=== PATIENT | female | born 1955 | race Caucasian/White ===

== ENCOUNTER → 2016-11-27 | Outpatient (CLI) | payer OTHER ==
[~2016-11-27] MED LIST: ADVAIR 250/501 EA INH; ADVAIR 500/501 E1 INH; ALDACTONE25 M1 PO; AMBIEN5 MG PO; ASMANEX220 MCG INH; ASPI-COR81 M1 PO; ASPIRIN81 M1 PO; Albuterol Sulfat3 M1 IH; BYETTA10 MCG/0.0 SC; CEPHALEXIN500 M1 PO; CIPRO250 MG PO; CIPRO500 MG PO; COREG3.125 MG PO; Carafate1 GM PO; DIGITEK0.125 MG PO; DOXEPIN10 MG PO; DUONEB 3 MG/3 ML3 M1 NEB; EFFEXOR XR150 M1 PO; EFFEXOR-XR150 MG PO; ENALAPRIL MALEAT5 MG PO; ENALAPRIL10 MG PO; ENALAPRIL5 MG PO; GABAPENTIN800 MG PO; HYDROCODONE BIT1 T11 PO; IMDUR ER30 MG PO; IMDUR SA30 MG PO; IMDUR30 MG PO; ISOSORBIDE MONO10 MG PO; ISOSORBIDE30 MG PO; LAMICTAL25 MG PO; LAMOTRIGINE25 M1 PO; LAMOTRIGINE25 MG PO; LANOXIN0.125 MG PO; LANTUS100 U/ML SC; LASIX20 MG PO; LEVAQUIN500 M2 PO; LOMOTIL 0.025 M1 TA1 PO; LOPRESSOR25 MG PO; LOPRESSOR50 MG PO; MAPAP325 MG PO; MELOXICAM15 MG PO; METFORMIN1000 MG PO; METFORMIN500 MG PO; METOPROLOL SUCC25 M2 PO; METOPROLOL SUCC50 M1 PO; MOBIC15 MG PO; MYCELEX TROCHE10 MG MM; Mycostatin Powd15 GM T; NOVOLOG1 UNIT/0.0 SC; NOVOLOG100 U/ML SC; Nizoral 2%15 GM T; PANTOPRAZOLE40 MG PO; PEPCID40 MG PO; PHENERGAN25 M1 PO; PREDNISONE20 M1 PO; PROTONIX40 MG PO; SPIRIVA -- 3018 MCG INH; SPIRIVA18 MCG IH; SYMBICORT1 AE1 INH; TOPROL XL100 MG PO; TOPROL XL25 MG PO; TOPROL XL50 MG PO; TRAD5TAB1 PO; TRADJENTA PO; TRAJENTA PO; TYLENOL325 M1 PO; TYLENOL325 M2 PO; ULTRAM50 MG PO; VIBRAMYCIN100 MG PO; VICO10300 PO; VICTOZA6 MG/ML SC; VITAMIN D-32000 UNI1 PO; VITAMIN D5000 I2 PO; VITAMIN D50000 I1 PO; VITAMIN D50000 I3 PO; ZITHROMAX Z PA250 MG PO; ZITHROMAX250 MG PO; ZOCOR40 MG PO; ZOFRAN ODT4 MG SL; [UNRECOGNIZED DRUG - OTHER] PO
--- NOTE | ~2016-11-27 | WRIGHTHP ---
[place], [place] PATIENT HISTORY AND PHYSICAL EXAM NAME: MARISA MANTILLA [facility] #: [id number] UNIT #: [id number] ROOM: DOCTOR: DAWIT LyonsMARIZA BIRTHDATE: [birth year] DOS: 11/27/2016 CHIEF COMPLAINT: Diabetic foot ulcers. HISTORY OF PRESENT ILLNESS: This is a 61-year-old female with a history of poorly controlled diabetes and neuropathy who comes in with multiple ulcerations of both of her feet located at the toes. She has been seen in the Wound Clinic before and had healed from diabetic foot ulcers. However, they have reoccurred. She has had some open areas for approximately 3-4 months now. She said it does not really drain. She said they started out as blisters and that occasionally she will get a sharp pain, which she attributes to neuropathy. No fevers or chills are noted. She is not putting any type of cream on it at the present time. She is keeping it covered with a dry dressing, however. She does not have diabetic shoes. She was encouraged to obtain these; however, she inquired to several different areas of different places for diabetic shoes, but none of them could be covered for her. According to the patient, she does not have diabetic shoes. She comes in today wearing a flat cloth like shoe which does not seem to have a very big toe box. PAST MEDICAL HISTORY: Significant for multiple medical problems which include COPD, history of atrial fibrillation, hypertension, type 2 diabetes, renal insufficiency, history of sepsis, congestive heart failure. She apparently wears oxygen at night. Her EF is 25%, obesity, protein calorie malnutrition, chronic respiratory failure, hypercoagulable state. She does have hyperlipidemia. She is on insulin. Her sugars are not well controlled. They are in the high 100s to mid 200s range. PAST SURGICAL HISTORY: She is status post x 2, tubal ligation, cholecystectomy, left foot surgery. FAMILY HISTORY: Diabetes and heart disease in her father. SOCIAL HISTORY: She is a former smoker, quit 14 years ago. She is , does not drink alcohol or use any drugs. ALLERGIES: IVP DYE. CURRENT MEDICATIONS: As follows: Aspirin 81 daily, Spiriva inhalation twice a day, gabapentin 800 t.i.d., Victoza daily, Tradjenta 5 mg daily, Zocor 40 daily, albuterol, ipratropium inhalation, nebulizers t.i.d., Advair Diskus b.i.d., metoprolol 100 daily, vitamin D3 2000 units daily, digoxin 125 mcg daily, Asmanex HFA 200 mcg daily, Pepcid 40 daily, Lantus 10 units in the morning and 60 units in the evening, NovoLog 20 units b.i.d., Lasix 20 daily, Ambien 5 mg at bedtime, Effexor XR 150 daily, doxepin 10 mg at bedtime, Imdur 10 mg daily. REVIEW OF SYSTEMS: She has chronic shortness of breath. She has no fevers or chills. She does have some difficulty ambulating with gait instability. She states that last night she had some nausea and diarrhea, but this seems to have improved this morning. [place], [place] PATIENT HISTORY AND PHYSICAL EXAM NAME: MARISA MANTILLA UNIT #: [id number] ROOM: DOCTOR: MARIZA PASTOR M.D. BIRTHDATE: [birth year] PHYSICAL EXAMINATION: VITAL SIGNS: She is afebrile, pulse of 88, respirations 18, blood pressure is 98/60. GENERAL: This is an elderly female who appears older than her stated age, is obese, in no acute distress. NECK: There is no JVD. LUNGS: Clear to auscultation anteriorly. CARDIOVASCULAR: S1, S2 regular rate and rhythm. ABDOMEN: Morbidly obese, soft and not tender at the current time. EXTREMITIES: She has no edema. Her pulses are palpable. Her feet are warm. Her DARCIE was 0.84 on the left and 0.9 on the right. She has several different open areas on both of her feet at the toes with a lot of exfoliation in open areas where there has been bleeding and trauma and denuded skin. The 2 major areas that were measured are measureable, there is one small ulcer located in between the third toe on the left side and the fourth digit. It is right in between those areas measuring 0.9 x 0.6 x 0.1. There is really very minimal amount of callus. There is really no visible necrotic tissue present. It is very superficial. The other area is on the right great toe and is measuring 0.5 x 0.5 x 0.1. There is no warmth, purulence or tenderness to any of these areas. The rest of the toes too, there are several areas where it is just excoriated skin and denuded areas from friction on the dorsal aspect of the toes. Her toes are somewhat curled and the areas that are affected are right at the tip of the toe on both of her feet actually. The left third toe is minimally edematous. It is not acutely warm and not acutely tender. There is no purulence noted. ASSESSMENT AND PLAN: Diabetic foot ulcers, mostly these are superficial in nature and I believe if we could get her better footwear, this could be avoided. In the meantime, for her excoriated areas, I would like her to try some Silvadene and try to keep some gauze, 2 x 2 in between the areas where her third and fourth digits are rubbing and see if that would help and then use a bulky ABD pad. We will give her postop shoe today, I think she will have difficulty walking with 2 postop shoes, but we will give her at least one for the right foot. I think this is the one of greater concern since the great toe is affected at this point, so we will give her postoperative shoe for the right foot. We will see if we can order PolyMem for her, I think this would really help that ulceration of her left third toe. I have written for a pair of diabetic shoes for her. Hopefully, her insurance will cover this. Followup is in 1 week. The patient was told to call if there is any problem. [place], [place] PATIENT HISTORY AND PHYSICAL EXAM [id number] UNIT #: [id number] ROOM: DOCTOR: MARIZA PASTOR M.D. BIRTHDATE: [birth year] MARIZA PASTOR MD CM:HISPHYS:PATIENT HISTORY AND PHYSICAL EXAMINATION [id number] MARIZA PASTOR M.D. 11/28/16 0932 interface
== END ==
LOC: WOUNDCARE 03:49
DX: E11.621 Type 2 diabetes mellitus with foot ulcer (principal); L97.511 Non-pressure chronic ulcer of other part of right foot limited to breakdown of skin; L97.521 Non-pressure chronic ulcer of other part of left foot limited to breakdown of skin; E11.40 Type 2 diabetes mellitus with diabetic neuropathy, unspecified; J44.9 Chronic obstructive pulmonary disease, unspecified; I48.91 Unspecified atrial fibrillation; I11.0 Hypertensive heart disease with heart failure; I50.9 Heart failure, unspecified; A41.9 Sepsis, unspecified organism; E78.5 Hyperlipidemia, unspecified; R06.02 Shortness of breath; L84 Corns and callosities; E66.01 Morbid (severe) obesity due to excess calories; N28.9 Disorder of kidney and ureter, unspecified; Z79.4 Long term (current) use of insulin; Z90.49 Acquired absence of other specified parts of digestive tract; Z87.891 Personal history of nicotine dependence

== ENCOUNTER → 2017-05-15 | Outpatient (CLI) | payer OTHER ==
[~2017-05-15] MED LIST changes: +LANTUS100 U/ML SQ
== END ==
LOC: MAMMO 04-25 14:30
DX: Z12.31 Encounter for screening mammogram for malignant neoplasm of breast (principal); E13.9 Other specified diabetes mellitus without complications

== ENCOUNTER → 2017-05-16 | Day surgery (SDC) | payer OTHER ==
[~2017-05-16] VITALS: Ht 172.7 cm; Wt 99.8 kg
[2017-05-16 08:01] VITALS: BP 173/84
[2017-05-16 09:25] VITALS: BP 126/67
[2017-05-16 09:40] VITALS: BP 138/70
[2017-05-16 09:55] VITALS: BP 116/66
== END | disposition home or self-care (01) ==
LOC: SDC 05-05 08:00
DX: Z09 Encounter for follow-up examination after completed treatment for conditions other than malignant neoplasm (principal); K63.5 Polyp of colon; K29.70 Gastritis, unspecified, without bleeding; K20.9 Esophagitis, unspecified; R13.10 Dysphagia, unspecified; K57.30 Diverticulosis of large intestine without perforation or abscess without bleeding; I11.0 Hypertensive heart disease with heart failure; I50.9 Heart failure, unspecified; J44.9 Chronic obstructive pulmonary disease, unspecified; Z86.14 Personal history of Methicillin resistant Staphylococcus aureus infection; Z98.51 Tubal ligation status; Z90.49 Acquired absence of other specified parts of digestive tract; Z98.890 Other specified postprocedural states; Z83.3 Family history of diabetes mellitus; Z87.891 Personal history of nicotine dependence; Z79.4 Long term (current) use of insulin; Z86.010 Personal history of colon polyps; Z79.899 Other long term (current) drug therapy; Z79.82 Long term (current) use of aspirin; F32.9 Major depressive disorder, single episode, unspecified; E11.621 Type 2 diabetes mellitus with foot ulcer

== ENCOUNTER → 2017-06-10 | Outpatient (CLI) | payer OTHER ==
--- NOTE | ~2017-06-10 | CON ---
[place], [place] REPORT OF CONSULTATION [id number] UNIT #: [id number] ROOM: DOCTOR: DAWIT LyonsMARIZA BIRTHDATE: [birth year] DOS: 06/10/2017 HISTORY OF PRESENT ILLNESS: This patient has been seen in the Wound Care Department before, but has not been seen for several months now. The last time she was here was back in January for multiple diabetic foot ulcers that were relatively superficial and the wound had been improving; however, she has been lost to follow up. She comes in today stating that she has been quite busy at home. Her has been ill and has had multiple cardiac issues and says she has been quite busy with him and has not really been able to focus on her medical problems. She did insist however that she get her feet reevaluated and that is why she is here. She states her wounds kind of get better and then reopen very easily and says she has had fairly open wounds now for the past 3 or 4 weeks now. They do drain occasionally bloody drainage. She has not been really putting anything on it. She is just wearing her socks, does have Band-Aids that she will put on the wounds, but does not have any other types of dressing supplies. She is using postop shoes for both of her feet presently. Initially, the wounds start out as blisters. They break open and then create a wound that takes a long time to heal. When I asked specifically about her sugar control, she says someone took her glucometer or she thinks she lost it and went to the hospital and she has not been checking her sugars for quite some time now, but we do note that her sugar has been markedly uncontrolled in the past. The wounds are not really creating any pain or discomfort at the present time. SOCIAL HISTORY: She currently is a nonsmoker. PHYSICAL EXAMINATION: VITAL SIGNS: Temperature is 99.1, pulse is 98, respirations 18, blood pressure is 110/60. EXTREMITIES: The wounds are located on both of her feet. She has multiple open areas that are fairly superficial and abrasion type of injuries, but the biggest ones are located on the right great toe measuring 0.5 x 0.6 x 0.1, that is wound #10. Wound #11 is in the right posterior part of the toe and is 1 x 0.5 x 0.2. There is a lot of excoriation and old dried blood around the area, a little bit calluses on the right great toe. Wound #12 is also on the right great toe midline, is 0.5 x 0.8 x 0.1. Wound #13 is on the right fifth toe. This is also measuring 0.6 x 2.4 x 0.1. This is to me the worst one. At this point, the toe is erythematous, but not acutely tender. There is some minimal fibrin slough present and it is actually in between the web space of the fourth and fifth toe. There is no purulence. The left great toe has an open area as well as 0.4 x 0.4 x 0.1 that looks relatively superficial and then there is another one on the left great toe that is 0.4 x 0.4 x 0.1. Wound #15 is on the second left toe, 0.4 x 0.4 x 0.1. Selective debridement was done of the wound on the fifth toe as well as on the right great toe. The tissue removed was just a devitalized tissue with some hyperkeratosis and callus as well as some fibrin and slough. The patient tolerated the debridement well. The tissue was just a devitalized tissue. A scalpel was utilized as well as a curette. There was minimal bleeding that was controlled with pressure. Post debridement measurements are unchanged. The patient tolerated the debridement well. ASSESSMENT AND PLAN: Chronic recurrent diabetic foot ulcers. Really she does not have good offloading shoes or protected footwear, and for that matter she [place], [place] REPORT OF CONSULTATION NAME: MARISA MANTILLA UNIT #: [id number] ROOM: DOCTOR: AI PASTOR M.D.ENA BIRTHDATE: [birth year] has an open toe postop shoe that she is using which I think is still not helping to prevent some of these wounds. She also had a blistered area on the right lateral foot that was intact, it is blood filled, it is not tender, there was no sign of infection, which I think is from the strap of the postop shoe. For now I would like to use the TheraHoney sheets just to try to keep the wound clean. They are relatively superficial. They do not appear to be acutely infected. There may be mild cellulitis with the fifth toe. At this time, we will go ahead and put her on an empiric doxycycline 100 twice a day for 10 days for now and I have taken the liberty to order an x-ray. The patient is agreeable to that. She did have arterial Dopplers done in the recent couple of months ago back in January, which were good. She had good ABIs and relatively normal waveforms at that time. We will also schedule the legal referee to come when she is here next week to hopefully try to obtain for her some type of offloading device that will accommodate her toes as well and give her enough room for her toes. We will use a dressing today that hopefully will stay in place for at least 3 days, unless there is strike-through and she is to change it before then. So I have ordered an x-ray. I have also ordered her lab work. She has not had her hemoglobin A1c checked for. ADDENDUM I wanted to mention that I did go ahead and order an x-ray of the right foot, mostly to evaluate the fifth toe area and also I had taken the liberty to order some blood work for her as she has not been checking her sugars, so we really have no idea what her control is, although I do know in the past, it has not been good. So, I would like to go ahead and get that checked as well. She is running a low grade temperature, although I would think it would be unlikely secondary to the wounds, they do not appear to be acutely infected. There may be some mild cellulitis on the fifth toe, but I did explain to her to keep an eye out for this and if she does spike a fever or have any changes, she should go to the ER. Ideally, a contact cast would probably be a good option for her to help really heal these ulcerations. However, her balance may not be stable enough for a contact cast, so we will not order this for her at this time. Followup is in one week. MARIZA PASTOR MD CM:CONSTR:REPORT OF CONSULTATION 1339 06/11/17 0808 interface
== END | disposition home or self-care (01) ==
LOC: WOUNDCARE 03:26
DX: E11.621 Type 2 diabetes mellitus with foot ulcer (principal); L97.521 Non-pressure chronic ulcer of other part of left foot limited to breakdown of skin; L97.511 Non-pressure chronic ulcer of other part of right foot limited to breakdown of skin

== ENCOUNTER → 2017-06-12 | Outpatient (CLI) | payer OTHER ==
[~2017-06-12] MED LIST changes: +CARVEDILOL6.25 MG PO; +NOVOLOG100 UNIT/1 SC; +VICTOZA 2-0.6 MG/0.1 SC; -VICTOZA6 MG/ML SC
[2017-06-12 10:06] LABS: BASO # 0.1 10*3/uL (0.0-0.1); EOS # 0.6 10*3/uL (0.0-0.4); EOS % 6.3 % (1.0-4.0); HEMATOCRIT 37.9 % (37.0-47.0); HEMOGLOBIN 12.1 g/dl (12.0-16.0); LYMPH # 3.2 10*3/uL (1.3-4.4); LYMPH % 35.6 % (27.0-41.0); MEAN CELL VOLUME 96.9 fl (81.0-99.0); MEAN CORPUSCULAR HGB 30.9 pg (27.0-31.0); MEAN CORPUSCULAR HGB CONC 31.9 g/dl (33.0-37.0); MONO # 0.6 10*3/uL (0.1-1.0); MONO % 6.4 % (3.0-9.0); NEUT # 4.5 10*3/uL (2.3-7.9); NEUT % 50.3 % (47.0-73.0); PLATELET COUNT AUTOMATED 271 10*3/uL (130-400); RED BLOOD COUNT 3.91 10*6/uL (4.10-5.10); RED CELL DISTRI WIDTH 12.9 % (0-14.5)
[2017-06-12 10:30] LABS: HEMOGLOBIN A1c 10.7 % (4.8-5.6)
[2017-06-12 10:32] LABS: ALBUMIN 3.2 gm/dl (3.1-4.5); BILIRUBIN, TOTAL 0.3 mg/dl (0.2-1.0); POTASSIUM 4.9 mmol/L (3.5-5.1); TOTAL PROTEIN 8.6 gm/dL (6.4-8.2)
== END | disposition home or self-care (01) ==
LOC: LAB 09:37
DX: E11.621 Type 2 diabetes mellitus with foot ulcer (principal); L97.519 Non-pressure chronic ulcer of other part of right foot with unspecified severity; L97.529 Non-pressure chronic ulcer of other part of left foot with unspecified severity

== ENCOUNTER 2017-06-14 18:13 | Inpatient (IN) | payer OTHER ==
[~2017-06-14] VITALS: Ht 172.7 cm; Wt 101.6 kg
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
--- NOTE | ~2017-06-14 | CON ---
[place], [place] REPORT OF CONSULTATION NAME: MARISA MANTILLA [facility] #: [id number] UNIT #: [id number] ROOM: 507 DOCTOR: DAWIT LyonsMARIZA BIRTHDATE: [birth year] DOS: 06/16/2017 WOUND CARE CONSULTATION. HISTORY OF PRESENT ILLNESS: This is a patient known to the wound clinic for a history of recurrent diabetic foot ulcers. She has had multiple ulcers of her feet, mostly the toe areas that are multiple and chronic and recurrent. These wounds had been healing in the past when she had been coming to the wound clinic consistently, but has not been to the wound clinic for several months now. She did come back to us back a week ago for the first time, back last Friday and when I had asked her about her glucose control, she said she did not know because she had run out of test strips and did not have a meter, so she had not been checking her sugar. I did go ahead and did some blood work and her sugar was noted to be over 400 on the routine blood work. I did advise the patient to either go to the hospital or call for ER evaluation or to seek the advice of her primary care. In any case, it does appear that she was brought into the Emergency Room several days later for confusion. She was brought in by her daughter. The patient had reported feeling weak and tired. There were reports of a fever of 101 that resolved with ibuprofen. She had noted some urinary symptoms, frequent with a malodor and she was admitted for urinary tract infection and metabolic encephalopathy, acute kidney failure and wound care has been consulted for her diabetic foot ulcers. When I had seen her last week, we did recommend TheraHoney for the wounds, but when I was called for the consult, nursing staff stated that the patient did not have any dressings on her feet and when she came up to the floor, her socks were sticking to her wounds. PAST MEDICAL HISTORY: Significant for history of chronic adrenal neoplasm, benign atrial fibrillation, chronic respiratory failure, chronic kidney disease stage 2, COPD, dyslipidemia, hypertension, generalized anxiety disorder, diabetes mellitus, irritable bowel syndrome, lumbar radiculopathy, macrocytic anemia, obesity, oxygen dependent, peripheral neuropathy, protein calorie malnutrition, systolic congestive heart failure. She is status post , cholecystectomy. She is status post left foot surgery. SOCIAL HISTORY: She is a former smoker, currently does not smoke. Denies drug use. Denies alcohol consumption. FAMILY HISTORY: Significant for liver failure in the mother and myocardial infarction in the father. ALLERGIES: IVP DYE. CURRENT MEDICATIONS: She has ordered are Lanoxin 125 mcg p.o. daily, Effexor 75 p.o. daily, Victoza subQ daily, Tradjenta 5 mg p.o. daily, aspirin 81 p.o. daily, simvastatin 40 at bedtime, Dulera q. 12 hours inhalation, Levemir b.i.d. subQ, Neurontin 800 p.o. b.i.d., Vasotec 5 p.o. b.i.d., doxepin 10 mg p.o. at bedtime, Coreg 6.25 p.o. b.i.d., ipratropium nebulizers q. 6 hours, Lovenox 40 subQ daily, insulin sliding scale, Rocephin 1 gram IV daily, Restoril 15 mg p.o. at bedtime p.r.n., Zofran 4 mg IV q. 6h. p.r.n., Morphine 2 mg IV q.4h. p.r.n., milk of mag, Dulcolax and Duck p.r.n. and Tylenol p.r.n. [place], [place] REPORT OF CONSULTATION NAME: MARISA MANTILLA UNIT #: [id number] ROOM: 507 DOCTOR: MARIZA PASTOR M.D. BIRTHDATE: [birth year] REVIEW OF SYSTEMS: She does not have any pain with her foot wounds. She denies currently any fever or chills. Apparently, she did report a fever at home. No breathing trouble, no chest pain, currently no nausea, vomiting or diarrhea. She did tell me that she has chronic lightheadedness, but says that this is feeling better. PHYSICAL EXAMINATION: VITAL SIGNS: Temperature is 98.9, pulse of 88, respirations 20, blood pressure is 123/62. GENERAL: This is an elderly female who appears much older than her stated age, is in no acute distress and pleasant and cooperative to examination. HEENT: Oropharynx is clear. Mucous membranes are moist. Extraocular movements are intact. NECK: Supple. There is no JVD. LUNGS: Clear. CARDIOVASCULAR: S1, S2 regular rate and rhythm. Systolic murmur appreciable. ABDOMEN: Morbidly obese, soft and nontender. EXTREMITIES: She has really no calf tenderness. Peripheral pulses are palpable. She has multiple excoriations and abrasions of all her toes. The wounds on the left foot appear to be stable or not and they are dry and starting to look like they are healing. The right great toe wound still has a lot of callus. There is a lot of excoriation and areas of repetitive trauma that are causing dried blood around the periwound noted. The open area is really not that big, I would say 0.6 x 0.5 x 0.1. It does not appear to be infected. There was an actual open area last week on the medial aspect of the toe that does appear to be healed at this point. The area between the fourth and fifth toes on the web right foot looks much better than last week. Her entire toe was red and that has definitely gone down quite a bit. She was given a script for an antibiotic for possible cellulitis of the fifth toe, so that definitely looks better than when I saw it and the open area also looks to be healing quite nicely. Due to the fact that there was quite a bit of callus and some devitalized tissue around the right great toe ulcer, a debridement was done. This was a selective debridement. The tissue removed was just hyperkeratosis. Cetacaine spray was used for topical anesthesia and a #15 blade was utilized. The patient tolerated the debridement well. Post-debridement measurements are unchanged. LABORATORY DATA: Today show white count of 6.5, hemoglobin of 9.8, platelets of 188. BUN is 11, creatinine 0.8, glucose is 115. Her hemoglobin A1c is uncontrolled at 10.5. Her triglycerides are high at 300. Urine culture is pending. The patient had a head CT done, which was no acute intracranial process. She also had an x-ray done of her foot, which I had ordered and that did show some soft tissue swelling, but no other bony abnormalities. ASSESSMENT AND PLAN: Multiple diabetic foot ulcerations that are relatively superficial. At this point, I do see an improvement from last week to this week. I would continue with Jayleen for now. She also had some areas that is a blistered area on the right lateral foot that I felt was from the straps of her shoes. It was intact that was left alone, so I would try to leave this [place], [place] REPORT OF CONSULTATION NAME: MARISA MANTILLA UNIT #: [id number] ROOM: 50 DOCTOR: MARIZA PASTOR M.D. BIRTHDATE: [birth year] alone and keep it dry as much as possible. We can pad it with a 4 x 4 border gauze for now. She also had an area on the medial part of the foot as well that looks to be healing. At this point, I think she really needs to have a better diabetic shoes. We had recommended to her in the past. She has not followed up in the wound clinic for several months now. We do have an appointment for her coming up in the wound clinic to meet with the choir member to see if there is any kind of offloading boots and/or shoes that we can order for the patient. She has multiple medical problems that are being managed by her medical team. She does have also depression and plans are for the patient to be admitted to [facility] once medically stable. The patient did have previous arterial studies done, which were good. MARIZA PASTOR MD CM:CONSTR:REPORT OF CONSULTATION 1506 06/20/17 1017 interface
[~2017-06-14 18:13] MED LIST changes: -CARVEDILOL6.25 MG PO; -NOVOLOG100 UNIT/1 SC
[2017-06-14 18:23] VITALS: BP 117/47
[2017-06-14 18:50] LABS: ALBUMIN 2.9 gm/dl (3.1-4.5); ALKALINE PHOSPHATASE 113 U/L (45-117); BILIRUBIN, TOTAL 0.2 mg/dl (0.2-1.0); BUN 23 mg/dl (7-24); CARBON DIOXIDE 27 mmol/L (21-32); CHLORIDE 102 mmol/L (98-107); EST GLOM FILT AFRICAN AMERICAN 45 ml/min; GLUCOSE 319 mg/dL (65-99); POTASSIUM 4.7 mmol/L (3.5-5.1); SGOT/AST 72 IU/L (3-35); SGPT/ALT 36 U/L (12-78); SODIUM 135 mmol/L (136-145); TOTAL PROTEIN 7.6 gm/dL (6.4-8.2)
[2017-06-14 18:53] LABS: TROPONIN I < 0.015 ng/ml (<0.045)
[2017-06-14 18:56] VITALS: BP 97/47
[2017-06-14 18:57] LABS: BASO # 0.1 10*3/uL (0.0-0.1); BASO % 0.9 % (0.0-1.0); EOS # 0.5 10*3/uL (0.0-0.4); EOS % 5.2 % (1.0-4.0); HEMATOCRIT 33.9 % (37.0-47.0); HEMOGLOBIN 10.8 g/dl (12.0-16.0); LYMPH # 3.4 10*3/uL (1.3-4.4); LYMPH % 35.7 % (27.0-41.0); MEAN CELL VOLUME 96.9 fl (81.0-99.0); MEAN CORPUSCULAR HGB 30.9 pg (27.0-31.0); MEAN CORPUSCULAR HGB CONC 31.9 g/dl (33.0-37.0); MEAN PLATELET VOLUME 10.2 fl (9.6-12.3); MONO # 0.7 10*3/uL (0.1-1.0); MONO % 7.2 % (3.0-9.0); NEUT # 4.8 10*3/uL (2.3-7.9); NEUT % 50.7 % (47.0-73.0); PLATELET COUNT AUTOMATED 243 10*3/uL (130-400); RED CELL DISTRI WIDTH 13.2 % (0-14.5); WHITE BLOOD COUNT 9.4 10*3/uL (4.8-10.8)
[2017-06-14 19:37] LABS: BILIRUBIN NEGATIVE (NEGATIVE); BLOOD TRACE-INTACT (NEGATIVE); CLARITY CLOUDY (CLEAR); COLOR YELLOW (YELLOW); GLUCOSE 3+ (NEGATIVE); KETONE TRACE (NEGATIVE); LEUKO ESTERASE 2+ (NEGATIVE); NITRITE NEGATIVE (NEGATIVE); PH 5.5 (5.0-9.0); PROTEIN NEGATIVE (NEGATIVE); UROBILINOGEN 0.2 E.U./dl (0.2-1.0)
[2017-06-14 19:48] LABS: BACTERIA 1+; EPITHELIAL CELLS TNTC; URINE REFLEX COMMENT YES (NO); WBC TNTC wbc/hpf (0-5); YEAST 2+
[2017-06-14 19:56] LABS: URINE AMPHETAMINES < 1000 (1000ng/ml); URINE BARBITURATES < 200 (200ng/ml); URINE COCAINE < 300 (300ng/ml)
[2017-06-14 22:07] VITALS: BP 110/43
[2017-06-15 05:47] LABS: HEMOGLOBIN A1c 10.5 % (4.8-5.6)
[2017-06-15 05:58] LABS: BUN 18 mg/dl (7-24); CARBON DIOXIDE 30 mmol/L (21-32); CHLORIDE 107 mmol/L (98-107); CHOLESTEROL 191 mg/dL (<200); EST GLOM FILT AFRICAN AMERICAN > 60 ml/min; FREE T4 0.84 ng/dl (0.76-1.46); GLUCOSE 150 mg/dL (65-99); HDL CHOLESTEROL 37 mg/dl (40-60); LDL CHOLESTEROL 94 mg/dL (9-159); POTASSIUM 4.4 mmol/L (3.5-5.1); SODIUM 142 mmol/L (136-145); TRIGLYCERIDES 301 mg/dl (<150); VLDL CHOLESTEROL 60 mg/dL (6-40)
[2017-06-15 06:07] LABS: BASO # 0.1 10*3/uL (0.0-0.1); BASO % 0.8 % (0.0-1.0); EOS # 0.5 10*3/uL (0.0-0.4); EOS % 6.8 % (1.0-4.0); HEMATOCRIT 32.2 % (37.0-47.0); HEMOGLOBIN 10.1 g/dl (12.0-16.0); LYMPH # 3.4 10*3/uL (1.3-4.4); MEAN CELL VOLUME 98.5 fl (81.0-99.0); MEAN CORPUSCULAR HGB 30.9 pg (27.0-31.0); MEAN CORPUSCULAR HGB CONC 31.4 g/dl (33.0-37.0); MEAN PLATELET VOLUME 10.3 fl (9.6-12.3); MONO # 0.6 10*3/uL (0.1-1.0); NEUT # 3.3 10*3/uL (2.3-7.9); NEUT % 41.1 % (47.0-73.0); PLATELET COUNT AUTOMATED 221 10*3/uL (130-400); RED BLOOD COUNT 3.27 10*6/uL (4.10-5.10); RED CELL DISTRI WIDTH 13.2 % (0-14.5)
[2017-06-15 07:05] LABS: PROTHROMBIN TIME 10.6 SECONDS (9.0-12.4)
[2017-06-15 07:52] VITALS: BP 150/79
[2017-06-15 12:00] VITALS: BP 155/78
[2017-06-15 12:00] LABS: BILIRUBIN NEGATIVE (NEGATIVE); BLOOD NEGATIVE (NEGATIVE); CLARITY SL CLOUDY (CLEAR); COLOR YELLOW (YELLOW); GLUCOSE NEGATIVE (NEGATIVE); KETONE NEGATIVE (NEGATIVE); LEUKO ESTERASE TRACE (NEGATIVE); NITRITE NEGATIVE (NEGATIVE); PROTEIN NEGATIVE (NEGATIVE); SPECIFIC GRAVITY <= 1.005 (1.005-1.030); UROBILINOGEN 0.2 E.U./dl (0.2-1.0)
[2017-06-15 12:10] LABS: BACTERIA TRACE; EPITHELIAL CELLS 0-2; URINE REFLEX COMMENT YES (NO)
[2017-06-15] MEDS ORDERED: NOVOLOG100 UNIT/1 SC (15:27)
[2017-06-15] MEDS ORDERED: ENALAPRIL5 MG PO (15:28)
[2017-06-15] MEDS ORDERED: CARVEDILOL6.25 MG PO (15:28)
[2017-06-15 16:00] VITALS: BP 131/64
[2017-06-15 20:00] VITALS: BP 136/70
[2017-06-16] VITALS: BP 115/62
[2017-06-16 06:50] LABS: BASO # 0.1 10*3/uL (0.0-0.1); BASO % 0.9 % (0.0-1.0); EOS # 0.5 10*3/uL (0.0-0.4); HEMOGLOBIN 9.8 g/dl (12.0-16.0); LYMPH % 45.7 % (27.0-41.0); MEAN CELL VOLUME 98.8 fl (81.0-99.0); MEAN CORPUSCULAR HGB 30.2 pg (27.0-31.0); MEAN CORPUSCULAR HGB CONC 30.6 g/dl (33.0-37.0); MONO # 0.5 10*3/uL (0.1-1.0); NEUT # 2.4 10*3/uL (2.3-7.9); NEUT % 37.1 % (47.0-73.0); PLATELET COUNT AUTOMATED 188 10*3/uL (130-400); RED BLOOD COUNT 3.24 10*6/uL (4.10-5.10); RED CELL DISTRI WIDTH 13.1 % (0-14.5); WHITE BLOOD COUNT 6.5 10*3/uL (4.8-10.8)
[2017-06-16 06:58] LABS: BUN 11 mg/dl (7-24); CARBON DIOXIDE 31 mmol/L (21-32); CHLORIDE 106 mmol/L (98-107); EST GLOM FILT AFRICAN AMERICAN > 60 ml/min; GLUCOSE 115 mg/dL (65-99); SODIUM 141 mmol/L (136-145)
[2017-06-16 08:00] VITALS: BP 125/57; BP 148/46
[2017-06-16 12:00] VITALS: BP 123/62
[2017-06-16 16:00] VITALS: BP 111/53
[2017-06-16 20:00] VITALS: BP 129/59
[2017-06-17] VITALS: BP 124/67
[2017-06-17 08:00] VITALS: BP 99/55
[2017-06-17 12:15] VITALS: BP 111/50
[2017-06-17 14:14] LABS: VITAMIN D, 25-HYDROXY 39.2 ng/mL (30-100)
[2017-06-17 14:15] LABS: FOLIC ACID 10.04 ng/mL (>5.38)
[2017-06-17 16:00] VITALS: BP 104/56
== END 2017-06-17 17:15 | disposition home or self-care (01) | DRG 40 ==
LOC: ED 18:13 → EDHOLD 21:24 → 5E 21:24
PROVIDERS: Internal Medicine; Nurse Practitioner Family; Student in an Organized Health Care Education/Training Program
PROC: 0YB Anatomical Regions, Lower Extremities, Excision (ICD-10-PCS; principal; 2017-06-16)
PROC: 0HBMXZZ Excision of Right Foot Skin, External Approach (ICD-10-PCS; 2017-06-16)
DX: G93.41 Metabolic encephalopathy (principal); N17.0 Acute kidney failure with tubular necrosis; J96.10 Chronic respiratory failure, unspecified whether with hypoxia or hypercapnia; I13.0 Hypertensive heart and chronic kidney disease with heart failure and stage 1 through stage 4 chronic kidney disease, or unspecified chronic kidney disease; E44.0 Moderate protein-calorie malnutrition; I95.9 Hypotension, unspecified; I50.22 Chronic systolic (congestive) heart failure; F11.20 Opioid dependence, uncomplicated; E11.22 Type 2 diabetes mellitus with diabetic chronic kidney disease; E11.42 Type 2 diabetes mellitus with diabetic polyneuropathy; N39.0 Urinary tract infection, site not specified; I48.91 Unspecified atrial fibrillation; E11.65 Type 2 diabetes mellitus with hyperglycemia; K59.00 Constipation, unspecified; E11.621 Type 2 diabetes mellitus with foot ulcer; J44.9 Chronic obstructive pulmonary disease, unspecified; N18.2 Chronic kidney disease, stage 2 (mild); E78.5 Hyperlipidemia, unspecified; F41.1 Generalized anxiety disorder; K58.9 Irritable bowel syndrome, unspecified; E66.9 Obesity, unspecified; M54.16 Radiculopathy, lumbar region; Z91.041 Radiographic dye allergy status; Z90.49 Acquired absence of other specified parts of digestive tract; Z99.81 Dependence on supplemental oxygen; Z87.891 Personal history of nicotine dependence; Z98.51 Tubal ligation status; Z68.33 Body mass index [BMI] 33.0-33.9, adult; Z82.49 Family history of ischemic heart disease and other diseases of the circulatory system; Z79.4 Long term (current) use of insulin; Z84.89 Family history of other specified conditions; Z83.3 Family history of diabetes mellitus

== ENCOUNTER → 2017-06-19 | Outpatient (CLI) | payer OTHER ==
[~2017-06-19] MED LIST changes: +CARVEDILOL6.25 MG PO; +NOVOLOG100 UNIT/1 SC
--- NOTE | ~2017-06-19 | PR ---
[place], [place] PROGRESS NOTE NAME: MARISA MANTILLA [facility] #: [id number] UNIT #: [id number] ROOM: DOCTOR: DAWIT LyonsMARIZA BIRTHDATE: [birth year] DOS: 06/19/2017 CHIEF COMPLAINT: Followup of multiple diabetic foot ulcers. HISTORY OF PRESENT ILLNESS: This is a 62-year-old female with poorly-controlled diabetes and multiple medical problems who was seen for the first time in the Wound Clinic last week; however, she has been a patient in the past, but has been lost to follow up as well. She comes in as a followup today. Last week, we had blood drawn and her glucose was over 400. She eventually went to the Emergency Room and was diagnosed with a urinary tract infection and was admitted to the hospital where I did see her in consultation and it did appear that the wound seems stable and improving. She has been using TheraHoney sheet. She comes in today without any specific complaints. She says she did notice a new blistered area on her dorsum of the right foot, but otherwise everything else is definitely getting smaller and improving with TheraHoney. She says her sugars are getting better. OBJECTIVE: VITAL SIGNS: Stable. Temperature is 98.7, pulse of 98, respirations 18, blood pressure is 140/50. EXTREMITIES: The wound on #10, which is on the right great toe is measuring smaller at 5.3 x 0.2 x 0.2 and there is some callus still present. A lot of darkened areas secondary to blood and repetitive trauma is noticed as well that has been present. The wound on the right great toe medial aspect is definitely improved and appears to be healed. Wound #12, which is located on the midline of the right great toe is healed. Wound #13, which is the fifth toe between the webspace looks really good as well as 0.1 x 0.1 x 0.1. There is no necrotic tissue. The #14 is a little bit bigger at the left great toe. It is measuring 0.6 x 1.3 x 0.1. This looks more like an abrasion. It is clean and there is really no necrotic tissue and then there is a wound on the left second toe, which is healing as well. She also has an intact blister that is nontender on the dorsum of the right foot, which appears stable and not infected with clear serous fluid and relatively small. A selective debridement was done of the right great toe ulcer just to remove the hyperkeratotic callus around the wound. This was accomplished with a #15 blade. There was some bleeding that was controlled with pressure and silver nitrate. Post-debridement measurements are unchanged. The patient tolerated the debridement well. ASSESSMENT AND PLAN: Multiple diabetic foot ulcers, which are relatively superficial and I believe she is dragging her feet when she walks and ambulates and this is creating wounds and several abrasions. We will continue with the current dressing, which is TheraHoney and a bulky dressing and a postop shoe; however, would like to see if we can get orthotics consultation for possible some type of postop shoe or offloading CAM walker, something that will be sturdier and more protective for her. In addition, she definitely should have some new diabetic shoes. Otherwise, we will continue with the present medications. [place], [place] PROGRESS NOTE NAME: MARISA [facility]ANTILLA [facility] [id number] UNIT #: [id number] ROOM: DOCTOR: MARIZA PASTOR M.D. BIRTHDATE: [birth year] MARIZA PASTOR MD CM:PNTRANS [id number] MARIZA PASTOR M.D. 06/19/17 1237 interface
== END | disposition home or self-care (01) ==
LOC: WOUNDCARE 03:08
DX: E11.621 Type 2 diabetes mellitus with foot ulcer (principal); L97.521 Non-pressure chronic ulcer of other part of left foot limited to breakdown of skin; L97.511 Non-pressure chronic ulcer of other part of right foot limited to breakdown of skin

== ENCOUNTER → 2017-06-30 | Outpatient (CLI) | payer OTHER ==
--- NOTE | ~2017-06-30 | PR ---
[place], [place] PROGRESS NOTE NAME: MARISA MANTILLA [facility] #: [id number] UNIT #: [id number] ROOM: DOCTOR: DAWIT LyonsMARIZA BIRTHDATE: [birth year] DOS: 06/30/2017 CHIEF COMPLAINT: Followup of multiple diabetic foot ulcers. HISTORY OF PRESENT ILLNESS: This is a 62-year-old female with poorly controlled diabetes and multiple medical problems who has been coming to the Wound Clinic for 2 weeks now for multiple diabetic foot ulcers that started out as abrasions on the multiple toes due to neuropathy and poor ill-fitting footwear. She comes in today without any specific complaints. She does have some bloody drainage coming from the right great toe ulcer. Glucose remains elevated per patient report, she says it is still pretty high. PHYSICAL EXAMINATION: VITAL SIGNS: Temperature 98.7, pulse 98, respirations 18, blood pressure is 156/60. EXTREMITIES: Essentially all the wounds have healed on the multiple toes. She still has one on the right great toe that is measuring 0.3 x 0.4 x 0.3. There is very thick callus around it. There is no sign of infection. There is undermining all the way around about 0.3 cm. A debridement was done. The tissue removed was devitalized hyperkeratotic callus as well as the undermined area. This was accomplished with a #15 blade and forceps and scissors. There was amenable bleeding that was controlled with pressure. The patient tolerated the debridement well; it was a selective debridement only. Post-debridement measurements are 0.9 x 0.5 x 0.2. ASSESSMENT AND PLAN: Chronic diabetic foot ulcers. Now, we are dealing with the right great toe ulceration that is really associated with very thick and recurrent callus formation. We need to offload this area a little bit better. She was going to see our community chest officer today for evaluation of an offloading device; however, he will actually see her tomorrow instead to further offload the area with a boot. Also, she is going to get diabetic shoes as well. In the meantime, we will use a collagen for now. The wound is clean, so we can go to collagen and a bulky dressing and have her follow up in one week. [place], [place] PROGRESS NOTE NAME: MARISA MANTILLA UNIT #: [id number] ROOM: DOCTOR: MARIZA PASTOR M.D. BIRTHDATE: [birth year] MARIZA PASTOR MD CM:RADHA [id number] MARIZA PASTOR M.D. 07/01/17256 interface
== END | disposition home or self-care (01) ==
LOC: WOUNDCARE 03:47
DX: E11.621 Type 2 diabetes mellitus with foot ulcer (principal); L97.512 Non-pressure chronic ulcer of other part of right foot with fat layer exposed; E11.40 Type 2 diabetes mellitus with diabetic neuropathy, unspecified; L84 Corns and callosities

== ENCOUNTER → 2017-07-18 | Outpatient (CLI) | payer OTHER ==
--- NOTE | ~2017-07-18 | PR ---
[place], [place] PROGRESS NOTE NAME[id number] UNIT #: [id number] ROOM: DOCTOR: AMENA LINDSEY DPM BIRTHDATE: [birth year] DOS: 07/18/2017 SUBJECTIVE: This is an established patient, seen for right great toe plantar surface diabetic ulcer. The patient has been using Puracol to the area as directed, without any new complaints. Upon physical exam, it is noted that the wound has some slough and debris at the base, although it is relatively healthy. She has no complaints on the foot, but she did have a fall when she entered into her bathroom. She states she did not hurt her head, but she did hurt her legs. The wound measures 1.5 cm x 1.2 cm x 0.3 cm. This area is slough covered and has callus and debris, no active infection, purulent discharge or odor noted. The area was debrided through subcutaneous with 15 blade. The patient tolerated procedure well. Minimal bleeding was controlled via pressure. IMPRESSION: Grade 1 diabetic ulceration, stable. PLAN: 1. Evaluate. 2. Debridement was performed. We will continue using the Puracol AG but we will change the frequency from every third day to every day and have the patient reappoint next week. AMENA LINDSEY DPM CM:PNTRANS [id number] AMENA LINDSEY DPM 07/18/17 1319 interface
== END | disposition home or self-care (01) ==
LOC: WOUNDCARE 02:40
DX: E11.621 Type 2 diabetes mellitus with foot ulcer (principal); L97.512 Non-pressure chronic ulcer of other part of right foot with fat layer exposed; L84 Corns and callosities

== ENCOUNTER → 2017-07-25 | Outpatient (CLI) | payer OTHER | END | disposition home or self-care (01) | LOC: WOUNDCARE 02:10 | DX: E11.621 Type 2 diabetes mellitus with foot ulcer (principal); L97.512 Non-pressure chronic ulcer of other part of right foot with fat layer exposed; L97.521 Non-pressure chronic ulcer of other part of left foot limited to breakdown of skin; I10 Essential (primary) hypertension; E78.5 Hyperlipidemia, unspecified; Z87.891 Personal history of nicotine dependence ==

== ENCOUNTER → 2017-07-30 | Outpatient (CLI) | payer OTHER ==
[2017-07-30 10:36] LABS: ALBUMIN 2.9 gm/dl (3.1-4.5); ALKALINE PHOSPHATASE 152 U/L (45-117); BUN 17 mg/dl (7-24); CHLORIDE 96 mmol/L (98-107); CREATININE 1.06 mg/dL (0.55-1.02); SGOT/AST 79 IU/L (3-35); SGPT/ALT 40 U/L (12-78); SODIUM 137 mmol/L (136-145); TOTAL PROTEIN 8.5 gm/dL (6.4-8.2)
[2017-07-31 06:11] LABS: TOTAL PROTEIN, SERUM 7.4 g/dL (6.0-8.5)
[2017-07-31 15:09] LABS: A/G RATIO 0.8 (0.7-1.7); ALBUMIN 3.2 g/dL (2.9-4.4); ALPHA-1-GLOBULIN 0.3 g/dL (0.0-0.4); ALPHA-2-GLOBULIN 0.9 g/dL (0.4-1.0); BETA GLOBULIN 1.3 g/dL (0.7-1.3); GAMMA GLOBULIN 1.7 g/dL (0.4-1.8); GLOBULIN, TOTAL 4.2 g/dL (2.2-3.9); M-SPIKE Not Observed g/dL (Not Observed)
[2017-08-01 18:08] LABS: METHYLMALONIC ACID 706961 520 nmol/L (0-378)
== END | disposition home or self-care (01) ==
LOC: LAB 08:55 → MRI 09:00
PROVIDERS: Psychiatry & Neurology Neurology
DX: R51 Headache (principal); R41.3 Other amnesia; R42 Dizziness and giddiness; R20.9 Unspecified disturbances of skin sensation

== ENCOUNTER → 2017-08-06 | Outpatient (CLI) | payer OTHER | END | disposition home or self-care (01) | LOC: WOUNDCARE 01:09 | DX: E11.621 Type 2 diabetes mellitus with foot ulcer (principal); L97.512 Non-pressure chronic ulcer of other part of right foot with fat layer exposed; I10 Essential (primary) hypertension; E78.5 Hyperlipidemia, unspecified; Z87.891 Personal history of nicotine dependence ==

== ENCOUNTER 2017-08-27 16:34 | Inpatient (IN) | payer OTHER ==
[2017-08-27] VITALS (14 sets, daily range): BP systolic 78–109; BP diastolic 30–62
[~2017-08-27] VITALS: Ht 172.7 cm; Wt 108.5 kg
--- NOTE | ~2017-08-27 | CON ---
[place], [place] REPORT OF CONSULTATION [id number] #: [id number] ROOM: 520 DOCTOR: ROSALINE BORDEN MD BIRTHDATE: [birth year] DOS: 08/28/2017 HISTORY OF PRESENT ILLNESS: This is a 62-year-old -[place] woman with a history of atrial fibrillation, chronic respiratory failure, stage 2 chronic kidney disease, type 2 diabetes mellitus, and COPD. She quit smoking 16 years ago. Has dyslipidemia, essential hypertension, peripheral neuropathy, obesity. She had a diagnostic heart cath done recently and coronary arteries were okay. She was admitted to the hospital because of right-sided chest pain. The pain starts in the upper back of the right side of the spine and moved around to the lateral part of the chest. No anterior chest pain was evident. This feeling has been there for about a week and it came and went. She had it at night and also when she moved her torso. There was no sweating, nausea and breathing was not difficult. She had reported that it was sharp to the physician who did the initial history and physical, but when I asked, she said there was a pressure and heaviness over the upper back. No fever or chills. She denies no cough, but has chronic shortness of breath. No swelling in the lower extremities. HOME MEDICATIONS: Include aspirin, carvedilol, digoxin, doxepin, enalapril, furosemide, gabapentin, ipratropium-albuterol/DuoNeb, Victoza, Tradjenta, Zocor, Spiriva, and Effexor. PHYSICAL EXAMINATION: GENERAL: This is a patient who is alert and oriented, sitting in a chair. She is having her lunch and is not particularly short of breath. Her complexion is a little pale. VITAL SIGNS: Pulse is regular at 18 beats per minute, blood pressure 130/82. NECK: Normal JVP. No bruit in the neck. HEART: There is no cardiomegaly, no murmurs are present. EXTREMITIES: There is no edema in the lower extremities. RESPIRATORY: Breath sounds are mildly diminished with some adventitious sounds. BACK: There is a moderate degree of tenderness over the upper back and states the pain that she tells me was bothering her. IMPRESSION: 1. This patient has chest wall pain. I do not believe there is any underlying coronary artery disease. 2. History of atrial fibrillation. She is in normal sinus rhythm. There are no active cardiac problems at this time. I have no new recommendations. I thank you for this consult. [place], [place] REPORT OF CONSULTATION NAME: MARISA MANTILLA UNIT #: [id number] ROOM: [facility] DOCTOR: ROSALINE BORDEN MD BIRTHDATE: [birth year] ROSALINE BORDEN MD CM:CONSTR:REPORT OF CONSULTATION 1226 08/28/17 0396 interface
--- NOTE | ~2017-08-27 | EKG ---
[place], [place] ELECTROCARDIOGRAM REPORT NAME: MARISA MANTILLA UNIT #: [id number] ROOM: [facility] DOCTOR: ROSALINE BORDEN MD BIRTHDATE: [birth year] DOS: 08/27/2017 TIME: 1641 hours. Normal sinus rhythm at 93 beats per minute. Flattened T waves in lateral chest leads. An abnormal ECG. No previous tracing is available for comparison. ROSALINE BORDEN MD CM:EKGRPT:ELECTROCARDIOGRAM REPORT [id number] 1313 ROSALINE BORDEN MD
--- NOTE | ~2017-08-27 | PR ---
[place], [place] PROGRESS NOTE NAME: MARISA MANTILLA [facility] #: [id number] UNIT #: [id number] ROOM: 520 DOCTOR: LULU LUONG MD BIRTHDATE: [birth year] DOS: 08/29/2017 SUBJECTIVE: A 24-hour events noted. Discussed with the nursing staff. Cardiac status appears to be stable. The patient is seen by Dr. Edwards yesterday. OBJECTIVE: VITAL SIGNS: Blood pressure today is 106/46. NECK: Supple, no JVD. LUNGS: Clear. HEART: Sounds are regular. NEUROLOGIC: Stable. LABORATORY DATA: Hemoglobin 10.6, hematocrit 33.8. Electrolytes are normal. Creatinine is 1.1. Echocardiogram done by Dr. Edwards showed an excellent ejection fraction. IMPRESSION: The patient with chest wall pain, probable noncardiac pain, history of atrial fibrillation, chronic kidney disease, chronic obstructive pulmonary disease, oxygen dependency, and cardiac status is stable. Continue the carvedilol, digoxin, enalapril, Lasix, simvastatin, and we will follow up. LULU LUONG MD CM:PNTRANS [id number] LULU LUONG MD 08/30/17212 interface
[2017-08-27 17:10] LABS: BASO # 0.1 10*3/uL (0.0-0.1); BASO % 0.9 % (0.0-1.0); EOS # 0.5 10*3/uL (0.0-0.4); EOS % 4.4 % (1.0-4.0); HEMATOCRIT 34.3 % (37.0-47.0); HEMOGLOBIN 11.1 g/dl (12.0-16.0); LYMPH # 3.3 10*3/uL (1.3-4.4); MEAN CELL VOLUME 95.5 fl (81.0-99.0); MEAN CORPUSCULAR HGB 30.9 pg (27.0-31.0); MEAN CORPUSCULAR HGB CONC 32.4 g/dl (33.0-37.0); MEAN PLATELET VOLUME 9.8 fl (9.6-12.3); MONO # 0.9 10*3/uL (0.1-1.0); MONO % 7.9 % (3.0-9.0); NEUT # 6.2 10*3/uL (2.3-7.9); NEUT % 56.4 % (47.0-73.0); PLATELET COUNT AUTOMATED 235 10*3/uL (130-400); RED BLOOD COUNT 3.59 10*6/uL (4.10-5.10); WHITE BLOOD COUNT 11.1 10*3/uL (4.8-10.8)
[2017-08-27 17:20] LABS: ACT PARTIAL THROMBO TIME 22.1 SECONDS (20.8-31.5)
[2017-08-27 17:26] LABS: ALBUMIN 2.9 gm/dl (3.1-4.5); ALKALINE PHOSPHATASE 140 U/L (45-117); BUN 22 mg/dl (7-24); CHLORIDE 97 mmol/L (98-107); CREATININE 1.76 mg/dL (0.55-1.02); LIPASE 336 U/L (73-393); MAGNESIUM 1.6 mg/dL (1.5-2.1); POTASSIUM 4.4 mmol/L (3.5-5.1); SGOT/AST 55 IU/L (3-35); SGPT/ALT 39 U/L (12-78); SODIUM 134 mmol/L (136-145); TOTAL PROTEIN 7.6 gm/dL (6.4-8.2)
[2017-08-27 17:28] LABS: TROPONIN I < 0.015 ng/ml (<0.045)
[2017-08-27 18:46] LABS: BILIRUBIN NEGATIVE (NEGATIVE); BLOOD NEGATIVE (NEGATIVE); CLARITY SL CLOUDY (CLEAR); COLOR YELLOW (YELLOW); GLUCOSE 3+ (NEGATIVE); KETONE TRACE (NEGATIVE); LEUKO ESTERASE 1+ (NEGATIVE); NITRITE POSITIVE (NEGATIVE); PH 5.5 (5.0-9.0); UROBILINOGEN 0.2 E.U./dl (0.2-1.0)
[2017-08-27 19:00] LABS: BACTERIA 4+; CALCIUM OXALATE CRYSTALS 1+; EPITHELIAL CELLS 20-25; WBC 41-50 wbc/hpf (0-5); YEAST 1+
--- NOTE | 2017-08-27 19:31 | NUR ---
LA 2.4 DR SMITH NOTIFIED
--- NOTE | 2017-08-27 19:59 | NUR ---
RESIDENT IN ROOM TO TALK TO PATIENT AND GET PATIENT'S HISTORY AND PHYSICAL.
--- NOTE | 2017-08-27 20:30 | NUR ---
A 62 YEAR OLD FEMALE admitted to [facility], under the services of LAUREANO Isbell DO with a diagnosis of UTI,CP,SHOCK,LACTIC ACIDOSIS. Chief complaint is DIZZINESS, RIGHT SIDED CHEST PAIN. Patient arrived via stretcher from ER. Monitor applied. Initial assessment completed. Vital signs taken and recorded. LAUREANO ISBELL DO notified of admission to the unit. Orders received. See assessment for past medical history, medications and allergies. Patient and/or family oriented to unit. [facility] visitation policy reviewed. Clothing/patient valuable form completed. NEAL BOURGEOIS
[2017-08-27] MEDS ORDERED: VITAMIN D50000 UNIT PO (20:50)
--- NOTE | 2017-08-27 21:23 | NUR ---
DR. BORDEN NOTIFIED OF CONSULT. NO NEW ORDERS RECEIVED.
--- NOTE | 2017-08-27 21:25 | NUR ---
PT USES MAIL IN PHARMACY. HAS LIST OF HOME MEDS WITH HER. MED REC UPDATED
--- NOTE | 2017-08-27 22:14 | NUR ---
DR. MELVIN MADE AWARE THAT PT HAS DIABETIC FOOT WOUNDS.
--- NOTE | 2017-08-27 22:17 | NUR ---
2210 MEDICATED WITH NORCO PO FOR CONT C/O'S PAIN R BREAST. RATES PAIN A "6". WILL MONITOR. IV FLUIDS INFUSING WELL. FLUID BOLUSES DONE. WOUND PICTURES TAKEN AND PATTERN HANGER AWARE. 02 INTACT.
--- NOTE | 2017-08-27 22:42 | NUR ---
EARLIER NORCO EFFECTIVE. RESTING IN BED WITH EYES CLOSED. APPEARS TO BE SLEEPING.
[2017-08-28] VITALS: BP 122/71
--- NOTE | 2017-08-28 00:27 | NUR ---
REMAINS SLEEPING WITHOUT DISTRESS.
[2017-08-28 04:00] VITALS: BP 127/68
[2017-08-28 04:40] LABS: BASO % 0.4 % (0.0-1.0); EOS % 0.5 % (1.0-4.0); HEMATOCRIT 33.8 % (37.0-47.0); HEMOGLOBIN 10.6 g/dl (12.0-16.0); LYMPH # 1.4 10*3/uL (1.3-4.4); LYMPH % 18.1 % (27.0-41.0); MEAN CELL VOLUME 95.8 fl (81.0-99.0); MEAN CORPUSCULAR HGB CONC 31.4 g/dl (33.0-37.0); MONO # 0.1 10*3/uL (0.1-1.0); MONO % 1.4 % (3.0-9.0); NEUT # 6.1 10*3/uL (2.3-7.9); NEUT % 78.8 % (47.0-73.0); PLATELET COUNT AUTOMATED 192 10*3/uL (130-400); RED BLOOD COUNT 3.53 10*6/uL (4.10-5.10); WHITE BLOOD COUNT 7.7 10*3/uL (4.8-10.8)
[2017-08-28 04:50] LABS: ACT PARTIAL THROMBO TIME 22.7 SECONDS (20.8-31.5)
[2017-08-28 05:09] LABS: CREATININE 1.18 mg/dL (0.55-1.02); POTASSIUM 4.7 mmol/L (3.5-5.1)
[2017-08-28 05:17] LABS: THYROID STIM HORMONE (HS) 0.512 uIU/ml (0.358-4.75)
--- NOTE | 2017-08-28 06:13 | NUR ---
SLEPT WELL THIS SHIFT. REMAINS WITHOUT FURTHER C/O'S. IV FLUIDS CONT. NO DISTRESS NOTED. 02 INTACT. CONDITION GUARDED.
[2017-08-28 06:26] LABS: VITAMIN D, 25-HYDROXY 31.7 ng/mL (30-100)
[2017-08-28 08:00] VITALS: BP 138/82
[2017-08-28 12:00] VITALS: BP 123/65
--- NOTE | 2017-08-28 12:20 | NUR ---
DR BORDEN IN TO SEE PT.
--- NOTE | 2017-08-28 14:14 | NUR ---
MARISA MANTILLA [id number] Please refer to the physician's history and physical for past medical history, comorbid conditions, and allergies. Diagnosis: UTI CHEST PAIN SHOCK LACTIC ACIDOSIS Zackery Score: 21,LOW OR NO RISK WOUND DESCRIPTIONS: Location of the wound: left great toe Type of wound: diabetic foot ulcer Thickness: Partial Size: 2.3cm x 4.7cm x 0.1cm Tunneling: none Undermining: none Sinus Tract: none Presence of Exudate: none Amount: None Color: Red, brown Odor: None Periwound Skin Appearance: Normal Wound edges: approximated Location of the wound: left second toe Type of wound: dibetic foot ulcer Thickness: Partial Size: 1.7cm x 1.7cm x <0.1cm Tunneling: none Undermining: none Sinus Tract: none Presence of Exudate: Amount: None Color: Red Odor: None Periwound Skin Appearance: Normal Wound edges: approximated Location of the wound: left third toe Type of wound: diabetic foot ulcer Thickness: Partial Size: 1.5cm x 1.8cm x <0.1cm Tunneling: none Undermining: none Sinus Tract: none Presence of Exudate: Amount: None Color: Red Odor: None Periwound Skin Appearance: Normal Wound edges: approximated Pain (associated with wound): Location of the wound: right fifth toe Type of wound: diabetic foot ulcer Thickness: Partial Size: 0.7cm x 0.7cm x <0.1cm Tunneling: none Undermining: none Sinus Tract: none Presence of Exudate: Amount: None Color: Red Odor: None Periwound Skin Appearance: Normal Wound edges: approximated Location of the wound: right great toe Type of wound: dibatic foot ulcer Thickness: Partial Size: 0.8cm x 5.7cm x <0.1cm Tunneling: none Undermining: none Sinus Tract: none Amount: None Color: Red Odor: None Periwound Skin Appearance: Normal Wound edges: approximated Pain (associated with wound): patient denied pain at time of assessment How does patient state this happened? patient is unsure how these areas happened. Pedal pulses present bilaterally Surface the patient is resting on: Isoflex SKIN PREVENTION RECOMMENDATION: 1. Pressure redistribution support surface as appropriate 2. Elevate heels 3. Remove boots/TEDS every shift and reapply 4. Head of bed 30 degrees as tolerated 5. Assess nutrition and hydration 6. Manage moisture 7. Avoid the use of containment devices while in bed 8. Use absorptive products on surfaces limit layers of linens on bed 9. Turn and reposition every 1-2 hours in bed and every 1 hour in chair as tolerated 10. Weight shifts every 15 minutes while up in chair 11. Offloading with pillows or device to keep heels elevated off bed 12. Monitor skin at least every shift 13. Inspect under medical devices twice a day WOUND TREATMENT RECOMMENDATIONS: Consult Dr. Aguillon. Patient is a patient of the [facility] and Dr. Aguillon is diamond sander.
--- NOTE | 2017-08-28 14:50 | NUR ---
DAYANNA AT DR CAMACHO OFFICE MADE AWARE OF NEW CONSULT ORDER.
[2017-08-28 16:00] VITALS: BP 118/62
--- NOTE | 2017-08-28 16:11 | NUR ---
PHYSICAL THERAPY EVAL COMPLETED. PATIENT PLEASANT AND COOPERATIVE. PATIENT ON NASAL CANNULA OXGYEN THROUGHOUT THIS SESSION. BED MOBILITY: SBA. TRANSFERS IN/OUT OF BED: SBA. GAIT FROM BED TO/FROM BSC WITH SBA. VERBAL CUES FOR SAFETY, WIDEN JULIANA AND PERFORM SLOW, CONTROLLED MOVEMENTS. PATIENT GETS SOB WITH MINIMAL EXERTION. COREY 3/10 AFTER WALKING TO/FROM BSC. PATIENT HAS GOOD REHAB POTENTIAL. CONTINUE PT FOR TRANSFERS, GAIT, BALANCE, SAFETY AND PROPER BREATHING TECHNIQUES. MODERATE COMPLEXITY PT EVAL D/T CHART REVIEW, EXTNESIVE PMH AND EVAL TIME THANK YOU FOR THIS REFERRAL, TRISHA GRANT, PT
--- NOTE | 2017-08-28 17:43 | NUR ---
REPORT GIVEN TO INPT RN AND PT TRANSFERED TO 520 VIA BED AT THIS TIME.
--- NOTE | 2017-08-28 18:20 | NUR ---
PATIENT TO FLOOR A TRANSFER FROM [facility], SHE IS ALERT, ORIENTED X 3, AMBULATORY TO RR, RESPIRATIONS ARE EASY AND REGULAR ON O2 3L NC. SHE HAS NO C/O PAIN OR DISTRESS. FINE HAND TREMORS NOTED, IVF CONTINUES TO INFUSE ORDERED W/NSS @ 100ML/HR VIA RIGHT HAND HEPLOCK.
[2017-08-28 20:00] VITALS: BP 121/53
[2017-08-29] VITALS: BP 110/61
[2017-08-29 08:00] VITALS: BP 111/55
--- NOTE | 2017-08-29 09:00 | NUR ---
Case Management Assistant in to talk to patient. Patient states lives at home with family. There are few steps in the home. Physician: Pharmacy: Home health services: none Patient's level of ADLs: INDEPENDENT Patient has working utilities: all working DME: cane, home oxygen, nebulizer thru [facility] Follow-up physician's appointment after d/c: will be made by hospitalist nurse director upon discharge Does patient want to access PORTAL?: no Discharge plan discussed with patient, patient lives at home with family, states she will be going back home when able and denies any home needs. SIXTO GARCIA
--- NOTE | 2017-08-29 10:14 | NUR ---
PHYSICAL THERAPY Mrs Manning's note as such this AM. Pt transfer supine/sit MIN A X 1, sitting balance CG X 1, X 4 min no LOB. Sit/stand and standing balance MIN A X 1. Gait total 90' X 1, MOD MATERIAL DAMAGE ADJUSTER X 1, Pt having IV pole and no LOB with this, verbal cueing for gait, turn safety. Pt back supine in bed to rest, call light and phone. PARUL BIRD SCRUB TECH.
--- NOTE | 2017-08-29 11:14 | NUR ---
PHYSICAL THERAPY Chey seen this AM for her therapy session. BP in sitting was 76/80, standing 182/78 with MIN A X 1, and sit to rest. Followed by sit/stand, standing balance MIN A X 1. Then gait total 90' X 1, MIN BUSINESS TRANSFORMATION MANAGER X 1, and little cueing for gait safety, Pt has IV Pole and nurse present. Pt back supine in bed with no complaints. PARUL BIRD SCENIC ARTIST.
[2017-08-29 12:00] VITALS: BP 106/46
[2017-08-29 16:00] VITALS: BP 119/55
[2017-08-29 20:00] VITALS: BP 95/65
--- NOTE | 2017-08-29 21:45 | NUR ---
PATIENT MEDICATED WITH NORCO PER PRN ORDER FOR C/O BACK PAIN. RATED PAIN A 4-5/10 WITH 10 BEING THE WORST. SEE EMAR. REINFORCED USE OF CALL LIGHT.
[2017-08-30] VITALS: BP 122/50
[2017-08-30 07:00] LABS: BUN 22 mg/dl (7-24); CHLORIDE 106 mmol/L (98-107); CREATININE 0.85 mg/dL (0.55-1.02); POTASSIUM 4.2 mmol/L (3.5-5.1); SODIUM 144 mmol/L (136-145)
[2017-08-30 08:00] VITALS: BP 100/50
[2017-08-30] MEDS ORDERED: DOXYCYCLINE100 M3 PO (11:40)
--- NOTE | 2017-08-30 12:00 | NUR ---
PT DECLINES DISCHARGE PHOTOS, STATING THE SORES ON HER TOES ARE NO DIFFERENT THEN 3 DAYS AGO, SHE IS TO FOLLOW UP IN WOUND CLINIC WITH DR LIVINGSTON
--- NOTE | 2017-08-30 12:28 | NUR ---
FLU VACC GIVEN IN RIGHT ARM PNEU GIVEN IN LEFT ARM PT VERBALIZED GOOD UNDERSTANDING OF HOME CARE, WHAT MEDS ARE STILL DUE TODAY AND OF NEW SCRIPT AND MAKING SURE SHE TAKES ALL OF THE DOXY
== END 2017-08-30 13:30 | disposition home or self-care (01) | DRG 871 ==
LOC: ED 16:34 → EDHOLD 19:56 → ICCU 19:56 → 5E 08-28 17:17
PROVIDERS: Emergency Medicine; Internal Medicine; ADMIT Internal Medicine
DX: A41.9 Sepsis, unspecified organism (principal); N17.0 Acute kidney failure with tubular necrosis; J96.21 Acute and chronic respiratory failure with hypoxia; E11.22 Type 2 diabetes mellitus with diabetic chronic kidney disease; I13.0 Hypertensive heart and chronic kidney disease with heart failure and stage 1 through stage 4 chronic kidney disease, or unspecified chronic kidney disease; J18.9 Pneumonia, unspecified organism; E87.2 Acidosis; I95.9 Hypotension, unspecified; E11.40 Type 2 diabetes mellitus with diabetic neuropathy, unspecified; I50.20 Unspecified systolic (congestive) heart failure; N30.00 Acute cystitis without hematuria; J44.1 Chronic obstructive pulmonary disease with (acute) exacerbation; J44.0 Chronic obstructive pulmonary disease with (acute) lower respiratory infection; E11.65 Type 2 diabetes mellitus with hyperglycemia; N18.3 Chronic kidney disease, stage 3 (moderate); I48.0 Paroxysmal atrial fibrillation; R65.20 Severe sepsis without septic shock; E78.00 Pure hypercholesterolemia, unspecified; B96.20 Unspecified Escherichia coli [E. coli] as the cause of diseases classified elsewhere; F41.1 Generalized anxiety disorder; K58.9 Irritable bowel syndrome, unspecified; D35.00 Benign neoplasm of unspecified adrenal gland; E66.9 Obesity, unspecified; Z91.041 Radiographic dye allergy status; Z79.899 Other long term (current) drug therapy; Z79.82 Long term (current) use of aspirin; Z90.49 Acquired absence of other specified parts of digestive tract; Z99.81 Dependence on supplemental oxygen; Z79.4 Long term (current) use of insulin; Z98.51 Tubal ligation status; Z87.891 Personal history of nicotine dependence; Z82.49 Family history of ischemic heart disease and other diseases of the circulatory system; Z83.3 Family history of diabetes mellitus; Z84.89 Family history of other specified conditions; Z68.34 Body mass index [BMI] 34.0-34.9, adult

== ENCOUNTER → 2017-09-11 | Outpatient (CLI) | payer OTHER ==
[~2017-09-11] MED LIST changes: +DOXYCYCLINE100 M3 PO; +VITAMIN D50000 UNIT PO
== END | disposition home or self-care (01) ==
LOC: WOUNDCARE 02:48
DX: E11.621 Type 2 diabetes mellitus with foot ulcer (principal); L97.511 Non-pressure chronic ulcer of other part of right foot limited to breakdown of skin; L97.521 Non-pressure chronic ulcer of other part of left foot limited to breakdown of skin; I10 Essential (primary) hypertension; E78.5 Hyperlipidemia, unspecified; Z87.891 Personal history of nicotine dependence; Z79.4 Long term (current) use of insulin

== ENCOUNTER → 2017-09-18 | Outpatient (CLI) | payer OTHER | END | disposition home or self-care (01) | LOC: WOUNDCARE 01:08 | DX: E11.621 Type 2 diabetes mellitus with foot ulcer (principal); L97.521 Non-pressure chronic ulcer of other part of left foot limited to breakdown of skin; L97.511 Non-pressure chronic ulcer of other part of right foot limited to breakdown of skin; I10 Essential (primary) hypertension; E78.5 Hyperlipidemia, unspecified; Z87.891 Personal history of nicotine dependence ==

== ENCOUNTER → 2017-11-12 | Outpatient (CLI) | payer OTHER | LOC: WOUNDCARE 09:06 | DX: E11.621 Type 2 diabetes mellitus with foot ulcer (principal); L97.512 Non-pressure chronic ulcer of other part of right foot with fat layer exposed; L97.522 Non-pressure chronic ulcer of other part of left foot with fat layer exposed; I10 Essential (primary) hypertension; E78.5 Hyperlipidemia, unspecified; Z87.891 Personal history of nicotine dependence ==

== ENCOUNTER → 2017-11-19 | Outpatient (CLI) | payer OTHER | LOC: WOUNDCARE 01:49 | DX: E11.621 Type 2 diabetes mellitus with foot ulcer (principal); L97.512 Non-pressure chronic ulcer of other part of right foot with fat layer exposed; L97.522 Non-pressure chronic ulcer of other part of left foot with fat layer exposed; I10 Essential (primary) hypertension; E78.5 Hyperlipidemia, unspecified; Z87.891 Personal history of nicotine dependence ==

== ENCOUNTER → 2018-01-28 | Outpatient (CLI) | payer OTHER | END | disposition home or self-care (01) | LOC: WOUNDCARE 01:31 | DX: E11.621 Type 2 diabetes mellitus with foot ulcer (principal); L97.512 Non-pressure chronic ulcer of other part of right foot with fat layer exposed; L97.522 Non-pressure chronic ulcer of other part of left foot with fat layer exposed; L84 Corns and callosities; E78.5 Hyperlipidemia, unspecified; I10 Essential (primary) hypertension; Z90.49 Acquired absence of other specified parts of digestive tract; Z87.891 Personal history of nicotine dependence ==

== ENCOUNTER → 2018-02-05 | Outpatient (CLI) | payer OTHER ==
[~2018-02-05] MED LIST changes: +CHLORZOXAZONE500 M2 PO
== END | disposition home or self-care (01) ==
LOC: WOUNDCARE 01:28
DX: E11.621 Type 2 diabetes mellitus with foot ulcer (principal); L97.512 Non-pressure chronic ulcer of other part of right foot with fat layer exposed; L97.522 Non-pressure chronic ulcer of other part of left foot with fat layer exposed; E78.5 Hyperlipidemia, unspecified; I10 Essential (primary) hypertension; Z90.49 Acquired absence of other specified parts of digestive tract; Z87.891 Personal history of nicotine dependence

== ENCOUNTER → 2018-02-12 | Outpatient (CLI) | payer OTHER | END | disposition home or self-care (01) | LOC: WOUNDCARE 01:40 | DX: E11.621 Type 2 diabetes mellitus with foot ulcer (principal); L97.512 Non-pressure chronic ulcer of other part of right foot with fat layer exposed; L97.522 Non-pressure chronic ulcer of other part of left foot with fat layer exposed; I10 Essential (primary) hypertension; E78.5 Hyperlipidemia, unspecified; Z87.891 Personal history of nicotine dependence ==

== ENCOUNTER → 2018-02-18 | Outpatient (CLI) | payer OTHER ==
[~2018-02-18] MED LIST changes: -CHLORZOXAZONE500 M2 PO
== END | disposition home or self-care (01) ==
LOC: WOUNDCARE 01:42
DX: E11.621 Type 2 diabetes mellitus with foot ulcer (principal); L97.512 Non-pressure chronic ulcer of other part of right foot with fat layer exposed; L97.522 Non-pressure chronic ulcer of other part of left foot with fat layer exposed; I10 Essential (primary) hypertension; E78.5 Hyperlipidemia, unspecified; Z87.891 Personal history of nicotine dependence

== ENCOUNTER → 2018-02-26 | Outpatient (CLI) | payer OTHER ==
[~2018-02-26] MED LIST changes: +CHLORZOXAZONE500 M2 PO
== END | disposition home or self-care (01) ==
LOC: WOUNDCARE 04:39
DX: E11.621 Type 2 diabetes mellitus with foot ulcer (principal); L97.512 Non-pressure chronic ulcer of other part of right foot with fat layer exposed; L97.522 Non-pressure chronic ulcer of other part of left foot with fat layer exposed; E78.5 Hyperlipidemia, unspecified; I10 Essential (primary) hypertension; Z90.49 Acquired absence of other specified parts of digestive tract; Z87.891 Personal history of nicotine dependence

== ENCOUNTER 2018-02-27 08:59 | Emergency (ER) | payer OTHER ==
[~2018-02-27] VITALS: Wt 103.0 kg
[~2018-02-27 08:59] MED LIST changes: -CHLORZOXAZONE500 M2 PO
[2018-02-27 09:30] LABS: BASO # 0.1 10*3/uL (0.0-0.1); BASO % 0.6 % (0.0-1.0); EOS # 0.3 10*3/uL (0.0-0.4); EOS % 3.6 % (1.0-4.0); HEMATOCRIT 36.2 % (37.0-47.0); HEMOGLOBIN 11.1 g/dl (12.0-16.0); LYMPH # 1.9 10*3/uL (1.3-4.4); LYMPH % 20.7 % (27.0-41.0); MEAN CELL VOLUME 95.3 fl (81.0-99.0); MEAN CORPUSCULAR HGB 29.2 pg (27.0-31.0); MEAN CORPUSCULAR HGB CONC 30.7 g/dl (33.0-37.0); MEAN PLATELET VOLUME 9.6 fl (9.6-12.3); MONO # 0.8 10*3/uL (0.1-1.0); MONO % 8.5 % (3.0-9.0); NEUT # 6.1 10*3/uL (2.3-7.9); NEUT % 66.1 % (47.0-73.0); PLATELET COUNT AUTOMATED 252 10*3/uL (130-400); RED CELL DISTRI WIDTH 13.6 % (0-14.5); WHITE BLOOD COUNT 9.3 10*3/uL (4.8-10.8)
[2018-02-27 09:44] LABS: ALBUMIN 2.7 gm/dl (3.1-4.5); ALKALINE PHOSPHATASE 159 U/L (45-117); BUN 11 mg/dl (7-24); CHLORIDE 96 mmol/L (98-107); CREATININE 1.03 mg/dL (0.55-1.02); POTASSIUM 4.2 mmol/L (3.5-5.1); SGOT/AST 21 IU/L (3-35); SGPT/ALT 15 U/L (12-78); SODIUM 135 mmol/L (136-145); TOTAL PROTEIN 8.2 gm/dL (6.4-8.2)
[2018-02-27 10:07] LABS: BILIRUBIN NEGATIVE (NEGATIVE); BLOOD TRACE-INTACT (NEGATIVE); CLARITY SL CLOUDY (CLEAR); COLOR YELLOW (YELLOW); GLUCOSE 3+ (NEGATIVE); KETONE NEGATIVE (NEGATIVE); LEUKO ESTERASE 1+ (NEGATIVE); NITRITE NEGATIVE (NEGATIVE); PH 6.5 (5.0-9.0); SPECIFIC GRAVITY <= 1.005 (1.005-1.030); UROBILINOGEN 0.2 E.U./dl (0.2-1.0)
[2018-02-27 10:17] LABS: WBC TNTC wbc/hpf (0-5)
[2018-02-27 10:18] LABS: BACTERIA TRACE; EPITHELIAL CELLS 0-2
[2018-02-27 11:06] VITALS: BP 144/73
[2018-02-27] MEDS ORDERED: CHLORZOXAZONE500 M2 PO (11:23)
== END 2018-02-27 11:27 | disposition home or self-care (01) ==
LOC: ED 08:59
PROVIDERS: Nurse Practitioner Family
DX: M54.41 Lumbago with sciatica, right side (principal); M54.42 Lumbago with sciatica, left side; R03.0 Elevated blood-pressure reading, without diagnosis of hypertension; Z87.891 Personal history of nicotine dependence; Z98.890 Other specified postprocedural states; Z98.51 Tubal ligation status; Z90.49 Acquired absence of other specified parts of digestive tract; Z79.82 Long term (current) use of aspirin; Z79.899 Other long term (current) drug therapy; Z79.4 Long term (current) use of insulin; Z91.041 Radiographic dye allergy status

== ENCOUNTER 2018-03-07 08:51 | Emergency (ER) | payer OTHER ==
[~2018-03-07] VITALS: Ht 172.7 cm; Wt 100.7 kg
[~2018-03-07 08:51] MED LIST changes: +CHLORZOXAZONE500 M2 PO
[2018-03-07 09:40] LABS: HEMATOCRIT 33.6 % (37.0-47.0); HEMOGLOBIN 10.7 g/dl (12.0-16.0); MEAN CELL VOLUME 92.6 fl (81.0-99.0); MEAN CORPUSCULAR HGB 29.5 pg (27.0-31.0); MEAN CORPUSCULAR HGB CONC 31.8 g/dl (33.0-37.0); MEAN PLATELET VOLUME 9.5 fl (9.6-12.3); PLATELET COUNT AUTOMATED 321 10*3/uL (130-400); RED BLOOD COUNT 3.63 10*6/uL (4.10-5.10); RED CELL DISTRI WIDTH 13.3 % (0-14.5); WHITE BLOOD COUNT 10.6 10*3/uL (4.8-10.8)
[2018-03-07 09:51] LABS: ACT PARTIAL THROMBO TIME 23.5 SECONDS (20.8-31.5)
[2018-03-07 09:57] LABS: ALBUMIN 2.4 gm/dl (3.1-4.5); ALKALINE PHOSPHATASE 241 U/L (45-117); BUN 16 mg/dl (7-24); CHLORIDE 94 mmol/L (98-107); POTASSIUM 3.9 mmol/L (3.5-5.1); SGOT/AST 24 IU/L (3-35); SGPT/ALT 14 U/L (12-78); SODIUM 132 mmol/L (136-145); TOTAL PROTEIN 8.3 gm/dL (6.4-8.2)
[2018-03-07 10:02] LABS: BASOPHILS 2 % (0-1); PLATELET SUFFICIENCY NORMAL (NORMAL); TOTAL CELLS COUNTED 100 #CELLS
[2018-03-07 10:08] LABS: TROPONIN I < 0.015 ng/ml (<0.045)
[2018-03-07 10:33] LABS: BILIRUBIN NEGATIVE (NEGATIVE); BLOOD TRACE-LYSED (NEGATIVE); CLARITY SL CLOUDY (CLEAR); COLOR YELLOW (YELLOW); GLUCOSE 3+ (NEGATIVE); KETONE NEGATIVE (NEGATIVE); LEUKO ESTERASE NEGATIVE (NEGATIVE); NITRITE NEGATIVE (NEGATIVE); SPECIFIC GRAVITY <= 1.005 (1.005-1.030); UROBILINOGEN 0.2 E.U./dl (0.2-1.0)
[2018-03-07 11:13] LABS: YEAST 1+
[2018-03-07 14:03] VITALS: BP 155/72
== END 2018-03-07 14:00 | disposition short-term general hospital (02) ==
LOC: ED 08:51
PROVIDERS: Nurse Practitioner Family
DX: A41.9 Sepsis, unspecified organism (principal); R65.20 Severe sepsis without septic shock; G06.1 Intraspinal abscess and granuloma; I13.0 Hypertensive heart and chronic kidney disease with heart failure and stage 1 through stage 4 chronic kidney disease, or unspecified chronic kidney disease; E11.22 Type 2 diabetes mellitus with diabetic chronic kidney disease; N18.3 Chronic kidney disease, stage 3 (moderate); I50.20 Unspecified systolic (congestive) heart failure; E11.65 Type 2 diabetes mellitus with hyperglycemia; J44.9 Chronic obstructive pulmonary disease, unspecified; E78.5 Hyperlipidemia, unspecified; E66.9 Obesity, unspecified; Z68.39 Body mass index [BMI] 39.0-39.9, adult; Z98.890 Other specified postprocedural states; Z90.49 Acquired absence of other specified parts of digestive tract; Z87.891 Personal history of nicotine dependence; Z79.82 Long term (current) use of aspirin; Z79.4 Long term (current) use of insulin; Z79.899 Other long term (current) drug therapy; Z91.041 Radiographic dye allergy status

== ENCOUNTER → 2018-06-02 | Outpatient (CLI) | payer OTHER | END | disposition home or self-care (01) | LOC: WOUNDCARE 03:30 | DX: E11.621 Type 2 diabetes mellitus with foot ulcer (principal); L97.512 Non-pressure chronic ulcer of other part of right foot with fat layer exposed; E11.42 Type 2 diabetes mellitus with diabetic polyneuropathy; E78.5 Hyperlipidemia, unspecified; I10 Essential (primary) hypertension; Z90.49 Acquired absence of other specified parts of digestive tract; Z87.891 Personal history of nicotine dependence ==

== ENCOUNTER → 2018-06-26 | Outpatient (CLI) | payer MEDICAID ==
[~2018-06-26] MED LIST changes: +BREO ELLIPTA 11 EACH INH; +FISH OIL 1,0001 EAC2 PO; +MOTION SICKNESS25 M5 PO; +PERCOCET 7.5-31 EACH PO; +TOUJEO SOL300 UNIT/1 SC
== END | disposition home or self-care (01) ==
LOC: WOUNDCARE 05:41
DX: E11.621 Type 2 diabetes mellitus with foot ulcer (principal); L97.512 Non-pressure chronic ulcer of other part of right foot with fat layer exposed; L97.521 Non-pressure chronic ulcer of other part of left foot limited to breakdown of skin; E11.42 Type 2 diabetes mellitus with diabetic polyneuropathy; I10 Essential (primary) hypertension; E78.5 Hyperlipidemia, unspecified; Z87.891 Personal history of nicotine dependence

== ENCOUNTER → 2018-07-03 | Outpatient (CLI) | payer MEDICAID | END | disposition home or self-care (01) | LOC: WOUNDCARE 04:13 | DX: E11.621 Type 2 diabetes mellitus with foot ulcer (principal); L97.512 Non-pressure chronic ulcer of other part of right foot with fat layer exposed; L97.521 Non-pressure chronic ulcer of other part of left foot limited to breakdown of skin; E11.42 Type 2 diabetes mellitus with diabetic polyneuropathy; I10 Essential (primary) hypertension; E78.5 Hyperlipidemia, unspecified; Z87.891 Personal history of nicotine dependence ==

== ENCOUNTER → 2018-07-09 | Outpatient (CLI) | payer MEDICAID | END | disposition home or self-care (01) | LOC: WOUNDCARE 05:16 | DX: E11.621 Type 2 diabetes mellitus with foot ulcer (principal); L97.518 Non-pressure chronic ulcer of other part of right foot with other specified severity; L97.528 Non-pressure chronic ulcer of other part of left foot with other specified severity; E11.42 Type 2 diabetes mellitus with diabetic polyneuropathy; I10 Essential (primary) hypertension; E78.5 Hyperlipidemia, unspecified; Z87.891 Personal history of nicotine dependence ==

== ENCOUNTER → 2019-03-30 | Outpatient (CLI) | payer OTHER | END | disposition home or self-care (01) | LOC: WOUNDCARE 01:40 | DX: E11.621 Type 2 diabetes mellitus with foot ulcer (principal); L97.512 Non-pressure chronic ulcer of other part of right foot with fat layer exposed; L97.521 Non-pressure chronic ulcer of other part of left foot limited to breakdown of skin; E11.42 Type 2 diabetes mellitus with diabetic polyneuropathy; E11.22 Type 2 diabetes mellitus with diabetic chronic kidney disease; N18.3 Chronic kidney disease, stage 3 (moderate); I13.0 Hypertensive heart and chronic kidney disease with heart failure and stage 1 through stage 4 chronic kidney disease, or unspecified chronic kidney disease; I50.9 Heart failure, unspecified; J44.9 Chronic obstructive pulmonary disease, unspecified; E78.5 Hyperlipidemia, unspecified; M19.90 Unspecified osteoarthritis, unspecified site; Z90.49 Acquired absence of other specified parts of digestive tract; Z87.891 Personal history of nicotine dependence; Z79.4 Long term (current) use of insulin ==

== ENCOUNTER 2019-08-02 15:48 | Emergency (ER) | payer MEDICAID ==
[~2019-08-02] VITALS: Ht 172.7 cm; Wt 104.3 kg
[~2019-08-02 15:48] MED LIST changes: +VOLTAREN100 GM T
[2019-08-02 16:02] VITALS: BP 107/56
[2019-08-02 16:55] LABS: BASO # 0.1 10*3/uL (0.0-0.1); BASO % 0.9 % (0.0-1.0); EOS # 0.6 10*3/uL (0.0-0.4); EOS % 5.5 % (1.0-4.0); HEMATOCRIT 32.3 % (37.0-47.0); HEMOGLOBIN 10.3 g/dl (12.0-16.0); LYMPH # 2.9 10*3/uL (1.3-4.4); LYMPH % 28.8 % (27.0-41.0); MEAN CELL VOLUME 93.1 fl (81.0-99.0); MEAN CORPUSCULAR HGB 29.7 pg (27.0-31.0); MEAN CORPUSCULAR HGB CONC 31.9 g/dl (33.0-37.0); MEAN PLATELET VOLUME 9.7 fl (9.6-12.3); MONO # 0.9 10*3/uL (0.1-1.0); MONO % 8.9 % (3.0-9.0); NEUT # 5.6 10*3/uL (2.3-7.9); NEUT % 55.5 % (47.0-73.0); PLATELET COUNT AUTOMATED 272 10*3/uL (130-400); RED BLOOD COUNT 3.47 10*6/uL (4.10-5.10); RED CELL DISTRI WIDTH 14.1 % (0-14.5); WHITE BLOOD COUNT 10.1 10*3/uL (4.8-10.8)
[2019-08-02 17:11] LABS: ACT PARTIAL THROMBO TIME 22.9 SECONDS (20.0-32.1); ALBUMIN 2.6 gm/dl (3.1-4.5); ALKALINE PHOSPHATASE 204 U/L (45-117); BUN 24 mg/dl (7-24); CHLORIDE 101 mmol/L (98-107); CREATININE 1.05 mg/dL (0.55-1.02); INTERNATIONAL NORM RATIO 0.9 (2.0-3.5); LIPASE 118 U/L (73-393); SGOT/AST 18 IU/L (3-35); SGPT/ALT 18 U/L (12-78); SODIUM 135 mmol/L (136-145); TOTAL PROTEIN 7.1 gm/dL (6.4-8.2)
[2019-08-02] MEDS ORDERED: DOXYCYCLINE100 M3 PO (17:58)
== END 2019-08-02 18:10 | disposition home or self-care (01) ==
LOC: ED 15:48
PROVIDERS: Nurse Practitioner Family
DX: S21.001A Unspecified open wound of right breast, initial encounter (principal); I48.91 Unspecified atrial fibrillation; J44.9 Chronic obstructive pulmonary disease, unspecified; E78.5 Hyperlipidemia, unspecified; E11.42 Type 2 diabetes mellitus with diabetic polyneuropathy; E11.22 Type 2 diabetes mellitus with diabetic chronic kidney disease; I13.0 Hypertensive heart and chronic kidney disease with heart failure and stage 1 through stage 4 chronic kidney disease, or unspecified chronic kidney disease; N18.3 Chronic kidney disease, stage 3 (moderate); I50.20 Unspecified systolic (congestive) heart failure; Z91.041 Radiographic dye allergy status; Z79.899 Other long term (current) drug therapy; Z79.82 Long term (current) use of aspirin; Z79.4 Long term (current) use of insulin; Z90.49 Acquired absence of other specified parts of digestive tract; Z87.891 Personal history of nicotine dependence; X58.XXXA Exposure to other specified factors, initial encounter; Y93.89 Activity, other specified; Y92.89 Other specified places as the place of occurrence of the external cause; Y99.8 Other external cause status

== ENCOUNTER 2020-05-25 19:06 | Emergency (ER) | payer OTHER ==
[~2020-05-25] VITALS: Wt 94.5 kg
[2020-05-25 19:56] LABS: HEMATOCRIT 36.9 % (37.0-47.0); MEAN CELL VOLUME 89.6 fl (81.0-99.0); MEAN CORPUSCULAR HGB 30.3 pg (27.0-31.0); MEAN CORPUSCULAR HGB CONC 33.9 g/dl (33.0-37.0); MEAN PLATELET VOLUME 9.5 fl (9.6-12.3); PLATELET COUNT AUTOMATED 325 10*3/uL (130-400); RED BLOOD COUNT 4.12 10*6/uL (4.10-5.10); RED CELL DISTRI WIDTH 13.8 % (0-14.5); WHITE BLOOD COUNT 18.1 10*3/uL (4.8-10.8)
[2020-05-25 20:12] LABS: PLATELET SUFFICIENCY NORMAL (NORMAL); TOTAL CELLS COUNTED 100 #CELLS
[2020-05-25 20:14] LABS: ALBUMIN 3.2 gm/dl (3.1-4.5); CREATININE 1.54 mg/dL (0.55-1.02); POTASSIUM 4.8 mmol/L (3.5-5.1); TOTAL PROTEIN 9.1 gm/dL (6.4-8.2); TROPONIN I 0.021 ng/ml (<0.045)
[2020-05-25 20:20] LABS: THYROID STIM HORMONE (HS) 0.309 uIU/ml (0.358-4.75)
[2020-05-25 22:39] VITALS: BP 136/72
== END 2020-05-25 22:30 | disposition short-term general hospital (02) ==
LOC: ED 19:06
PROVIDERS: Emergency Medicine
DX: I60.9 Nontraumatic subarachnoid hemorrhage, unspecified (principal); E10.10 Type 1 diabetes mellitus with ketoacidosis without coma; I13.0 Hypertensive heart and chronic kidney disease with heart failure and stage 1 through stage 4 chronic kidney disease, or unspecified chronic kidney disease; E10.22 Type 1 diabetes mellitus with diabetic chronic kidney disease; N18.3 Chronic kidney disease, stage 3 (moderate); I50.20 Unspecified systolic (congestive) heart failure; J44.9 Chronic obstructive pulmonary disease, unspecified; I48.91 Unspecified atrial fibrillation; Z91.041 Radiographic dye allergy status; Z79.899 Other long term (current) drug therapy; Z79.82 Long term (current) use of aspirin; Z79.4 Long term (current) use of insulin; Z87.891 Personal history of nicotine dependence

== ENCOUNTER 2020-08-28 22:05 | Emergency (ER) | payer OTHER ==
[~2020-08-28] VITALS: Ht 172.7 cm; Wt 100.7 kg
[2020-08-28 22:20] VITALS: BP 119/54
[2020-08-28 23:59] LABS: BASO # 0.1 10*3/uL (0.0-0.1); BASO % 0.6 % (0.0-1.0); EOS # 0.8 10*3/uL (0.0-0.4); HEMATOCRIT 34.6 % (37.0-47.0); LYMPH # 3.3 10*3/uL (1.3-4.4); LYMPH % 26.7 % (27.0-41.0); MEAN CELL VOLUME 93.8 fl (81.0-99.0); MEAN CORPUSCULAR HGB 28.7 pg (27.0-31.0); MEAN CORPUSCULAR HGB CONC 30.6 g/dl (33.0-37.0); MEAN PLATELET VOLUME 9.4 fl (9.6-12.3); MONO # 1.1 10*3/uL (0.1-1.0); MONO % 8.8 % (3.0-9.0); NEUT # 7.1 10*3/uL (2.3-7.9); NEUT % 56.7 % (47.0-73.0); PLATELET COUNT AUTOMATED 317 10*3/uL (130-400); RED BLOOD COUNT 3.69 10*6/uL (4.10-5.10); RED CELL DISTRI WIDTH 13.3 % (0-14.5); WHITE BLOOD COUNT 12.5 10*3/uL (4.8-10.8)
[2020-08-29 00:10] LABS: ACT PARTIAL THROMBO TIME 24.5 SECONDS (20.0-32.1)
[2020-08-29 00:20] LABS: ALBUMIN 2.6 gm/dl (3.1-4.5); CREATININE 1.56 mg/dL (0.55-1.02); TOTAL PROTEIN 7.8 gm/dL (6.4-8.2)
[2020-08-29 00:47] LABS: BILIRUBIN Negative (Negative); BLOOD Trace-Intact (Negative); CLARITY Clear (Clear); COLOR Yellow (Yellow); GLUCOSE 3+ (Negative); KETONE Negative (Negative); LEUKO ESTERASE 1+ (Negative); NITRITE Negative (Negative); PH 5.5 (4.5-8.0); SPECIFIC GRAVITY 1.025 (1.001-1.030); UROBILINOGEN 0.2 E.U./dl (0.0-1.0)
[2020-08-29 01:03] LABS: BACTERIA 1+; WBC 21-30 wbc/hpf (0-5)
[2020-08-29] MEDS ORDERED: CEPHALEXIN500 M1 PO (02:52)
== END 2020-08-29 03:00 | disposition home or self-care (01) ==
LOC: ED 22:05
PROVIDERS: Nurse Practitioner Family
DX: N39.0 Urinary tract infection, site not specified (principal); E11.65 Type 2 diabetes mellitus with hyperglycemia; J44.9 Chronic obstructive pulmonary disease, unspecified; I48.91 Unspecified atrial fibrillation; E11.9 Type 2 diabetes mellitus without complications; I50.9 Heart failure, unspecified; I11.0 Hypertensive heart disease with heart failure; Z91.041 Radiographic dye allergy status; Z79.899 Other long term (current) drug therapy; Z79.4 Long term (current) use of insulin; Z87.891 Personal history of nicotine dependence

== ENCOUNTER → 2020-11-21 | Outpatient (CLI) | payer OTHER ==
[~2020-11-21] MED LIST changes: +ACETAMINOPHEN500 M4 PO; +ATORVASTATIN CA80 M1 PO; +FEROSUL325 MG PO; +FUROSEMIDE40 MG PO; +HYDROCODONE-AC1 EAC2 PO; +OMEPRAZOLE40 MG PO; +OMNICEF300 MG PO; +PROVENTIL HFA6.7 GM INH; +ROSUVASTATIN CA40 MG PO; +UNASYN 3 GM VIAL3 GM IV; +VITAMIN C500 M4 PO; +VITAMIN D350 MC2 GT
== END | disposition home or self-care (01) ==
LOC: COVID19 14:07
PROVIDERS: ATTEND Physician Assistant
DX: Z20.822 Contact with and (suspected) exposure to COVID-19 (principal)

== ENCOUNTER 2020-12-05 17:57 | Inpatient (IN) | payer OTHER ==
[~2020-12-05] VITALS: Ht 152.4 cm; Wt 92.7 kg
[~2020-12-05 17:57] MED LIST changes: -ACETAMINOPHEN500 M4 PO; -ATORVASTATIN CA80 M1 PO; -FEROSUL325 MG PO; -FUROSEMIDE40 MG PO; -HYDROCODONE-AC1 EAC2 PO; -OMEPRAZOLE40 MG PO; -OMNICEF300 MG PO; -PROVENTIL HFA6.7 GM INH; -ROSUVASTATIN CA40 MG PO; -UNASYN 3 GM VIAL3 GM IV; -VITAMIN C500 M4 PO; -VITAMIN D350 MC2 GT
[2020-12-05 18:05] VITALS: BP 120/54
[2020-12-05 19:11] LABS: BASO # 0.1 10*3/uL (0.0-0.1); BASO % 0.4 % (0.0-1.0); EOS # 0.1 10*3/uL (0.0-0.4); EOS % 0.5 % (1.0-4.0); HEMATOCRIT 40.3 % (37.0-47.0); LYMPH # 1.2 10*3/uL (1.3-4.4); LYMPH % 7.1 % (27.0-41.0); MEAN CELL VOLUME 92.9 fl (81.0-99.0); MEAN CORPUSCULAR HGB 29.3 pg (27.0-31.0); MEAN CORPUSCULAR HGB CONC 31.5 g/dl (33.0-37.0); MEAN PLATELET VOLUME 9.9 fl (9.6-12.3); MONO # 1.3 10*3/uL (0.1-1.0); MONO % 7.4 % (3.0-9.0); NEUT # 14.2 10*3/uL (2.3-7.9); NEUT % 84.2 % (47.0-73.0); PLATELET COUNT AUTOMATED 249 10*3/uL (130-400); RED BLOOD COUNT 4.34 10*6/uL (4.10-5.10); RED CELL DISTRI WIDTH 13.6 % (0-14.5); WHITE BLOOD COUNT 16.9 10*3/uL (4.8-10.8)
[2020-12-05 19:26] LABS: ACT PARTIAL THROMBO TIME 23.1 SECONDS (20.0-32.1)
[2020-12-05 19:31] LABS: ALKALINE PHOSPHATASE 344 U/L (45-117); BUN 21 mg/dl (7-24); CHLORIDE 94 mmol/L (98-107); CREATININE 1.66 mg/dL (0.55-1.02); LIPASE 257 U/L (73-393); POTASSIUM 3.7 mmol/L (3.5-5.1); SGOT/AST 97 IU/L (3-35); SGPT/ALT 67 U/L (12-78); SODIUM 130 mmol/L (136-145); TOTAL PROTEIN 8.2 gm/dL (6.4-8.2)
[2020-12-05 19:32] LABS: TROPONIN I < 0.015 ng/ml (<0.045)
[2020-12-05 19:58] LABS: BILIRUBIN Negative (Negative); BLOOD 2+ (Negative); CLARITY Cloudy (Clear); COLOR Yellow (Yellow); GLUCOSE 3+ (Negative); KETONE Negative (Negative); LEUKO ESTERASE 2+ (Negative); NITRITE Negative (Negative); PH 5.5 (4.5-8.0); UROBILINOGEN 0.2 E.U./dl (0.0-1.0)
[2020-12-05 20:11] LABS: WBC TNTC wbc/hpf (0-5)
[2020-12-05 20:12] LABS: BACTERIA 1+
[2020-12-05 23:04] VITALS: BP 125/79
[2020-12-05 23:40] VITALS: BP 107/46
[2020-12-06] MEDS ORDERED: FUROSEMIDE40 MG PO (00:36)
[2020-12-06] MEDS ORDERED: ACETAMINOPHEN500 M4 PO (00:36)
[2020-12-06] MEDS ORDERED: VITAMIN C500 M4 PO (00:39)
[2020-12-06] MEDS ORDERED: PROVENTIL HFA6.7 GM INH (00:39)
[2020-12-06] MEDS ORDERED: HYDROCODONE-AC1 EAC2 PO (00:40)
[2020-12-06] MEDS ORDERED: VITAMIN D350 MC2 GT (00:41)
[2020-12-06] MEDS ORDERED: FEROSUL325 MG PO (00:41)
[2020-12-06] MEDS ORDERED: OMEPRAZOLE40 MG PO (00:42)
[2020-12-06] MEDS ORDERED: METOPROLOL SUCC25 M2 PO (00:45)
[2020-12-06] MEDS ORDERED: ROSUVASTATIN CA40 MG PO (00:52)
[2020-12-06 04:00] VITALS: BP 108/50
[2020-12-06 06:30] LABS: BASO # 0.1 10*3/uL (0.0-0.1); BASO % 0.2 % (0.0-1.0); HEMATOCRIT 34.3 % (37.0-47.0); LYMPH # 1.3 10*3/uL (1.3-4.4); LYMPH % 5.9 % (27.0-41.0); MEAN CORPUSCULAR HGB 29.6 pg (27.0-31.0); MEAN CORPUSCULAR HGB CONC 31.2 g/dl (33.0-37.0); MEAN PLATELET VOLUME 9.8 fl (9.6-12.3); MONO % 4.8 % (3.0-9.0); NEUT # 18.8 10*3/uL (2.3-7.9); NEUT % 88.5 % (47.0-73.0); PLATELET COUNT AUTOMATED 195 10*3/uL (130-400); RED BLOOD COUNT 3.61 10*6/uL (4.10-5.10); RED CELL DISTRI WIDTH 13.8 % (0-14.5); WHITE BLOOD COUNT 21.2 10*3/uL (4.8-10.8)
[2020-12-06 06:41] LABS: POTASSIUM 3.7 mmol/L (3.5-5.1)
[2020-12-06 06:55] LABS: INTERNATIONAL NORM RATIO 1.1 (2.0-3.5)
[2020-12-06 07:04] LABS: ALBUMIN 2.2 gm/dl (3.1-4.5); CREATININE 1.47 mg/dL (0.55-1.02); THYROID STIM HORMONE (HS) 0.184 uIU/ml (0.358-4.75); TOTAL PROTEIN 6.4 gm/dL (6.4-8.2)
[2020-12-06 08:00] VITALS: BP 92/41
[2020-12-06 12:00] VITALS: BP 102/43
[2020-12-06 16:00] VITALS: BP 97/52
[2020-12-06 20:00] VITALS: BP 133/66
[2020-12-07] VITALS: BP 138/56
[2020-12-07 05:50] LABS: ALBUMIN 2.2 gm/dl (3.1-4.5); CREATININE 1.45 mg/dL (0.55-1.02); POTASSIUM 3.9 mmol/L (3.5-5.1); TOTAL PROTEIN 7.1 gm/dL (6.4-8.2)
[2020-12-07 06:13] LABS: BASO # 0.1 10*3/uL (0.0-0.1); BASO % 0.3 % (0.0-1.0); EOS # 0.1 10*3/uL (0.0-0.4); EOS % 0.5 % (1.0-4.0); HEMATOCRIT 35.2 % (37.0-47.0); LYMPH # 1.1 10*3/uL (1.3-4.4); LYMPH % 7.2 % (27.0-41.0); MEAN CELL VOLUME 95.1 fl (81.0-99.0); MEAN CORPUSCULAR HGB 29.5 pg (27.0-31.0); MEAN PLATELET VOLUME 10.3 fl (9.6-12.3); MONO % 6.6 % (3.0-9.0); NEUT % 84.9 % (47.0-73.0); PLATELET COUNT AUTOMATED 184 10*3/uL (130-400); RED CELL DISTRI WIDTH 14.2 % (0-14.5); WHITE BLOOD COUNT 15.3 10*3/uL (4.8-10.8)
[2020-12-07 08:00] VITALS: BP 114/54
[2020-12-07 12:00] VITALS: BP 120/65
[2020-12-07 16:00] VITALS: BP 124/66
[2020-12-07 20:00] VITALS: BP 126/78
[2020-12-08] VITALS: BP 178/92
[2020-12-08 00:25] VITALS: BP 135/70
[2020-12-08 06:19] LABS: BASO # 0.1 10*3/uL (0.0-0.1); BASO % 0.4 % (0.0-1.0); EOS # 0.5 10*3/uL (0.0-0.4); EOS % 4.5 % (1.0-4.0); HEMATOCRIT 35.4 % (37.0-47.0); LYMPH # 1.4 10*3/uL (1.3-4.4); MEAN CELL VOLUME 96.7 fl (81.0-99.0); MEAN CORPUSCULAR HGB 29.5 pg (27.0-31.0); MEAN CORPUSCULAR HGB CONC 30.5 g/dl (33.0-37.0); MONO # 0.9 10*3/uL (0.1-1.0); MONO % 7.2 % (3.0-9.0); NEUT % 75.6 % (47.0-73.0); PLATELET COUNT AUTOMATED 212 10*3/uL (130-400); RED BLOOD COUNT 3.66 10*6/uL (4.10-5.10); WHITE BLOOD COUNT 11.9 10*3/uL (4.8-10.8)
[2020-12-08 06:31] LABS: CREATININE 1.15 mg/dL (0.55-1.02); POTASSIUM 3.4 mmol/L (3.5-5.1)
[2020-12-08 06:34] LABS: TOTAL PROTEIN 6.8 gm/dL (6.4-8.2)
[2020-12-08 08:00] VITALS: BP 122/63
[2020-12-08 12:00] VITALS: BP 125/68
[2020-12-08 16:00] VITALS: BP 120/54
[2020-12-08 20:00] VITALS: BP 132/86
[2020-12-09] VITALS (8 sets, daily range): BP systolic 107–138; BP diastolic 53–78
[2020-12-09 06:59] LABS: BASO # 0.1 10*3/uL (0.0-0.1); BASO % 0.5 % (0.0-1.0); EOS # 0.7 10*3/uL (0.0-0.4); EOS % 6.7 % (1.0-4.0); LYMPH # 1.4 10*3/uL (1.3-4.4); LYMPH % 14.4 % (27.0-41.0); MEAN CELL VOLUME 95.6 fl (81.0-99.0); MEAN CORPUSCULAR HGB 29.2 pg (27.0-31.0); MEAN CORPUSCULAR HGB CONC 30.5 g/dl (33.0-37.0); MEAN PLATELET VOLUME 9.4 fl (9.6-12.3); MONO # 0.9 10*3/uL (0.1-1.0); MONO % 9.5 % (3.0-9.0); NEUT # 6.7 10*3/uL (2.3-7.9); NEUT % 68.6 % (47.0-73.0); PLATELET COUNT AUTOMATED 263 10*3/uL (130-400); RED BLOOD COUNT 3.87 10*6/uL (4.10-5.10); RED CELL DISTRI WIDTH 14.1 % (0-14.5); WHITE BLOOD COUNT 9.7 10*3/uL (4.8-10.8)
[2020-12-09 07:28] LABS: POTASSIUM 3.1 mmol/L (3.5-5.1)
[2020-12-09 07:34] LABS: CREATININE 1.11 mg/dL (0.55-1.02); TOTAL PROTEIN 7.1 gm/dL (6.4-8.2)
[2020-12-10] VITALS: BP 115/45
[2020-12-10 07:32] LABS: CREATININE 1.2 mg/dL (0.55-1.02); POTASSIUM 3.4 mmol/L (3.5-5.1)
[2020-12-10 08:00] VITALS: BP 97/58
[2020-12-10 11:06] LABS: ACID FAST SPEC PROCESSING Tissue Grinding (.)
[2020-12-10 11:06] LABS: ACID FAST SPEC PROCESSING Tissue Grinding (.)
[2020-12-10 12:00] VITALS: BP 113/52
[2020-12-10 16:00] VITALS: BP 131/54
[2020-12-10 20:00] VITALS: BP 125/65
[2020-12-11] VITALS: BP 127/71
[2020-12-11 06:41] LABS: BASO # 0.1 10*3/uL (0.0-0.1); BASO % 0.8 % (0.0-1.0); EOS # 0.7 10*3/uL (0.0-0.4); EOS % 6.4 % (1.0-4.0); HEMATOCRIT 37.9 % (37.0-47.0); LYMPH # 2.3 10*3/uL (1.3-4.4); LYMPH % 22.9 % (27.0-41.0); MEAN CELL VOLUME 97.4 fl (81.0-99.0); MEAN CORPUSCULAR HGB 29.3 pg (27.0-31.0); MEAN CORPUSCULAR HGB CONC 30.1 g/dl (33.0-37.0); MEAN PLATELET VOLUME 9.8 fl (9.6-12.3); MONO # 1.1 10*3/uL (0.1-1.0); MONO % 10.7 % (3.0-9.0); NEUT # 5.9 10*3/uL (2.3-7.9); NEUT % 58.3 % (47.0-73.0); PLATELET COUNT AUTOMATED 289 10*3/uL (130-400); RED BLOOD COUNT 3.89 10*6/uL (4.10-5.10); WHITE BLOOD COUNT 10.2 10*3/uL (4.8-10.8)
[2020-12-11 07:11] LABS: CREATININE 1.19 mg/dL (0.55-1.02); POTASSIUM 3.7 mmol/L (3.5-5.1)
[2020-12-11 08:00] VITALS: BP 138/65
[2020-12-11 12:00] VITALS: BP 113/52
[2020-12-11 16:00] VITALS: BP 109/58
[2020-12-11 20:00] VITALS: BP 120/65
[2020-12-12] VITALS: BP 128/60
[2020-12-12 06:47] LABS: BASO # 0.1 10*3/uL (0.0-0.1); BASO % 0.5 % (0.0-1.0); EOS # 0.6 10*3/uL (0.0-0.4); EOS % 6.3 % (1.0-4.0); HEMATOCRIT 35.3 % (37.0-47.0); LYMPH # 2.4 10*3/uL (1.3-4.4); LYMPH % 25.9 % (27.0-41.0); MEAN CELL VOLUME 96.7 fl (81.0-99.0); MEAN PLATELET VOLUME 9.4 fl (9.6-12.3); MONO # 0.9 10*3/uL (0.1-1.0); MONO % 9.3 % (3.0-9.0); NEUT # 5.3 10*3/uL (2.3-7.9); NEUT % 57.3 % (47.0-73.0); PLATELET COUNT AUTOMATED 298 10*3/uL (130-400); RED BLOOD COUNT 3.65 10*6/uL (4.10-5.10); RED CELL DISTRI WIDTH 13.9 % (0-14.5); WHITE BLOOD COUNT 9.2 10*3/uL (4.8-10.8)
[2020-12-12 07:22] LABS: CREATININE 1.19 mg/dL (0.55-1.02); POTASSIUM 3.6 mmol/L (3.5-5.1)
[2020-12-12 08:00] VITALS: BP 123/59
[2020-12-12 12:00] VITALS: BP 127/66
[2020-12-12] MEDS ORDERED: ATORVASTATIN CA80 M1 PO (13:57)
[2020-12-12] MEDS ORDERED: HYDROCODONE-AC1 EAC2 PO (13:57)
[2020-12-12] MEDS ORDERED: METOPROLOL SUCC50 M1 PO (13:57)
[2020-12-12] MEDS ORDERED: UNASYN 3 GM VIAL3 GM IV (14:02)
[2020-12-12] MEDS ORDERED: OMNICEF300 MG PO (14:02)
[2020-12-12 16:04] VITALS: BP 113/44
[2021-01-21 11:04] LABS: ACID FAST CULTURE Negative (.)
[2021-01-21 11:04] LABS: ACID FAST CULTURE Negative (.)
== END 2020-12-12 20:30 | DRG 710 ==
LOC: ED 17:57 → 5E 21:48 → EDHOLD 21:48 → 5E 23:04
PROVIDERS: Emergency Medicine; Internal Medicine; Podiatrist; Student in an Organized Health Care Education/Training Program; ADMIT Internal Medicine; ATTEND Internal Medicine
PROC: 0QBP0ZX Excision of Left Metatarsal, Open Approach, Diagnostic (ICD-10-PCS; principal; 2020-12-09)
PROC: 0QBN0ZX Excision of Right Metatarsal, Open Approach, Diagnostic (ICD-10-PCS; 2020-12-09)
PROC: 0QDP0ZZ Extraction of Left Metatarsal, Open Approach (ICD-10-PCS; 2020-12-09)
PROC: 0QDN0ZZ Extraction of Right Metatarsal, Open Approach (ICD-10-PCS; 2020-12-09)
DX: A41.50 Gram-negative sepsis, unspecified (principal); N39.0 Urinary tract infection, site not specified; E87.1 Hypo-osmolality and hyponatremia; N18.32 Chronic kidney disease, stage 3b; M54.5 Low back pain; M54.16 Radiculopathy, lumbar region; E66.01 Morbid (severe) obesity due to excess calories; J44.9 Chronic obstructive pulmonary disease, unspecified; I48.0 Paroxysmal atrial fibrillation; J96.11 Chronic respiratory failure with hypoxia; I50.22 Chronic systolic (congestive) heart failure; L97.511 Non-pressure chronic ulcer of other part of right foot limited to breakdown of skin; R65.20 Severe sepsis without septic shock; E44.0 Moderate protein-calorie malnutrition; L97.521 Non-pressure chronic ulcer of other part of left foot limited to breakdown of skin; N17.0 Acute kidney failure with tubular necrosis; G89.29 Other chronic pain; E88.09 Other disorders of plasma-protein metabolism, not elsewhere classified; E11.22 Type 2 diabetes mellitus with diabetic chronic kidney disease; E78.5 Hyperlipidemia, unspecified; E87.8 Other disorders of electrolyte and fluid balance, not elsewhere classified; R74.01 Elevation of levels of liver transaminase levels; E11.65 Type 2 diabetes mellitus with hyperglycemia; E11.42 Type 2 diabetes mellitus with diabetic polyneuropathy; F41.1 Generalized anxiety disorder; G93.41 Metabolic encephalopathy; N12 Tubulo-interstitial nephritis, not specified as acute or chronic; Z20.822 Contact with and (suspected) exposure to COVID-19; M86.8X8 Other osteomyelitis, other site; S91.102A Unspecified open wound of left great toe without damage to nail, initial encounter; E11.69 Type 2 diabetes mellitus with other specified complication; Z68.41 Body mass index [BMI] 40.0-44.9, adult; Z91.041 Radiographic dye allergy status; Z98.891 History of uterine scar from previous surgery; Z90.49 Acquired absence of other specified parts of digestive tract; Z82.49 Family history of ischemic heart disease and other diseases of the circulatory system; Z79.4 Long term (current) use of insulin; Z79.899 Other long term (current) drug therapy; X58.XXXA Exposure to other specified factors, initial encounter; Y93.89 Activity, other specified; Y92.89 Other specified places as the place of occurrence of the external cause; Y99.8 Other external cause status

== ENCOUNTER → 2021-03-29 | Outpatient (CLI) | payer MEDICARE, MEDICAID ==
[~2021-03-29] MED LIST changes: +ACETAMINOPHEN500 M4 PO; +ATORVASTATIN CA80 M1 PO; +FEROSUL325 MG PO; +FUROSEMIDE40 MG PO; +HYDROCODONE-AC1 EAC2 PO; +OMEPRAZOLE40 MG PO; +OMNICEF300 MG PO; +PROVENTIL HFA6.7 GM INH; +ROSUVASTATIN CA40 MG PO; +UNASYN 3 GM VIAL3 GM IV; +VITAMIN C500 M4 PO; +VITAMIN D350 MC2 GT
[2021-03-29 10:49] LABS: BASO # 0.1 10*3/uL (0.0-0.1); BASO % 0.8 % (0.0-1.0); EOS # 0.5 10*3/uL (0.0-0.4); EOS % 6.1 % (1.0-4.0); HEMATOCRIT 38.6 % (37.0-47.0); LYMPH # 2.5 10*3/uL (1.3-4.4); LYMPH % 32.1 % (27.0-41.0); MEAN CELL VOLUME 99.7 fl (81.0-99.0); MEAN CORPUSCULAR HGB 30.7 pg (27.0-31.0); MEAN CORPUSCULAR HGB CONC 30.8 g/dl (33.0-37.0); MEAN PLATELET VOLUME 9.4 fl (9.6-12.3); MONO # 0.7 10*3/uL (0.1-1.0); MONO % 8.7 % (3.0-9.0); NEUT % 51.9 % (47.0-73.0); PLATELET COUNT AUTOMATED 245 10*3/uL (130-400); RED BLOOD COUNT 3.87 10*6/uL (4.10-5.10); RED CELL DISTRI WIDTH 13.2 % (0-14.5); WHITE BLOOD COUNT 7.7 10*3/uL (4.8-10.8)
[2021-03-29 11:26] LABS: CREATININE 1.12 mg/dL (0.55-1.02); TOTAL PROTEIN 7.8 gm/dL (6.4-8.2)
== END | disposition home or self-care (01) ==
LOC: LAB 10:30
PROVIDERS: ATTEND Specialist
DX: M86.179 Other acute osteomyelitis, unspecified ankle and foot (principal)

== ENCOUNTER 2021-05-16 18:24 | Inpatient (IN) | payer OTHER, MEDICAID ==
[~2021-05-16] VITALS: Ht 172.7 cm; Wt 100.8 kg
[2021-05-16 18:28] VITALS: BP 90/47
[2021-05-16 20:14] VITALS: BP 114/50
[2021-05-16 21:43] LABS: BASO % 0.4 % (0.0-1.0); EOS # 0.3 10*3/uL (0.0-0.4); EOS % 2.8 % (1.0-4.0); LYMPH # 3.2 10*3/uL (1.3-4.4); LYMPH % 30.4 % (27.0-41.0); MEAN CELL VOLUME 95.7 fl (81.0-99.0); MEAN CORPUSCULAR HGB 30.9 pg (27.0-31.0); MEAN CORPUSCULAR HGB CONC 32.2 g/dl (33.0-37.0); MEAN PLATELET VOLUME 9.5 fl (9.6-12.3); MONO # 0.9 10*3/uL (0.1-1.0); MONO % 8.2 % (3.0-9.0); NEUT # 6.1 10*3/uL (2.3-7.9); NEUT % 57.9 % (47.0-73.0); PLATELET COUNT AUTOMATED 235 10*3/uL (130-400); RED BLOOD COUNT 3.76 10*6/uL (4.10-5.10); RED CELL DISTRI WIDTH 13.2 % (0-14.5); WHITE BLOOD COUNT 10.6 10*3/uL (4.8-10.8)
[2021-05-16 21:58] LABS: ALBUMIN 3.1 gm/dl (3.1-4.5); ALKALINE PHOSPHATASE 225 U/L (45-117); BUN 14 mg/dl (7-24); CHLORIDE 103 mmol/L (98-107); CREATININE 1.42 mg/dL (0.55-1.02); LIPASE 174 U/L (73-393); POTASSIUM 3.4 mmol/L (3.5-5.1); SGOT/AST 23 IU/L (3-35); SGPT/ALT 25 U/L (12-78); SODIUM 139 mmol/L (136-145); TOTAL PROTEIN 7.9 gm/dL (6.4-8.2)
[2021-05-16 22:00] LABS: TROPONIN I < 0.015 ng/ml (<0.045)
[2021-05-16 22:06] LABS: BILIRUBIN Negative (Negative); BLOOD Negative (Negative); CLARITY Clear (Clear); COLOR Yellow (Yellow); GLUCOSE Negative (Negative); KETONE Negative (Negative); LEUKO ESTERASE 1+ (Negative); NITRITE Positive (Negative); PH 5.5 (4.5-8.0); UROBILINOGEN 0.2 E.U./dl (0.0-1.0)
[2021-05-16 22:16] LABS: BACTERIA 4+
[2021-05-16 22:17] LABS: WBC 21-30 wbc/hpf (0-5)
[2021-05-17] VITALS (17 sets, daily range): BP systolic 83–162; BP diastolic 36–107
[2021-05-17 06:05] LABS: CREATININE 1.59 mg/dL (0.55-1.02); POTASSIUM 3.9 mmol/L (3.5-5.1); TOTAL PROTEIN 7.4 gm/dL (6.4-8.2)
[2021-05-17 06:06] LABS: BASO # 0.1 10*3/uL (0.0-0.1); BASO % 0.4 % (0.0-1.0); EOS # 0.3 10*3/uL (0.0-0.4); EOS % 2.2 % (1.0-4.0); HEMATOCRIT 36.3 % (37.0-47.0); LYMPH # 2.8 10*3/uL (1.3-4.4); LYMPH % 23.2 % (27.0-41.0); MEAN CORPUSCULAR HGB 30.5 pg (27.0-31.0); MEAN CORPUSCULAR HGB CONC 30.6 g/dl (33.0-37.0); MEAN PLATELET VOLUME 10.2 fl (9.6-12.3); MONO # 1.2 10*3/uL (0.1-1.0); MONO % 9.6 % (3.0-9.0); NEUT # 7.7 10*3/uL (2.3-7.9); NEUT % 64.3 % (47.0-73.0); PLATELET COUNT AUTOMATED 242 10*3/uL (130-400); RED BLOOD COUNT 3.64 10*6/uL (4.10-5.10); RED CELL DISTRI WIDTH 13.3 % (0-14.5)
[2021-05-17 06:12] LABS: FREE T4 0.84 ng/dl (0.76-1.46); THYROID STIM HORMONE (HS) 1.92 uIU/ml (0.358-4.75)
[2021-05-17 06:44] LABS: MEAN CELL VOLUME 99.7 fl (81.0-99.0)
[2021-05-17 07:14] LABS: VITAMIN D, 25-HYDROXY 31.6 ng/mL (30-100)
[2021-05-17 10:04] LABS: ABG BASE EXCESS 7.9 mmol/L (-2.0-2.0); ARTERIAL BLOOD GAS PH 7.374 (7.35-7.45); ARTERIAL BLOOD GAS PO2 59.4 (80-90)
[2021-05-17] MEDS ORDERED: BUPRENORPHINE1 EAC2 TD (18:44)
[2021-05-17] MEDS ORDERED: NEURONTIN800 MG PO (18:45)
[2021-05-17] MEDS ORDERED: MECLIZINE HYD12.5 MG PO (18:49)
[2021-05-17] MEDS ORDERED: SENEXON-S 50-81 EACH PO (18:52)
[2021-05-17] MEDS ORDERED: VICTOZA 3-0.6 MG/0.1 SQ (18:55)
[2021-05-17] MEDS ORDERED: HYDROCODONE-AC1 EAC1 PO (18:58)
[2021-05-18] VITALS (10 sets, daily range): BP systolic 102–128; BP diastolic 48–87
[2021-05-18 07:31] LABS: BASO % 0.3 % (0.0-1.0); EOS # 0.4 10*3/uL (0.0-0.4); HEMATOCRIT 33.9 % (37.0-47.0); LYMPH # 2.5 10*3/uL (1.3-4.4); LYMPH % 24.9 % (27.0-41.0); MEAN CELL VOLUME 99.1 fl (81.0-99.0); MEAN CORPUSCULAR HGB 30.7 pg (27.0-31.0); MEAN PLATELET VOLUME 10.3 fl (9.6-12.3); MONO % 10.3 % (3.0-9.0); NEUT % 60.3 % (47.0-73.0); PLATELET COUNT AUTOMATED 206 10*3/uL (130-400); RED BLOOD COUNT 3.42 10*6/uL (4.10-5.10); RED CELL DISTRI WIDTH 13.4 % (0-14.5); WHITE BLOOD COUNT 9.9 10*3/uL (4.8-10.8)
[2021-05-18 07:39] LABS: ALBUMIN 2.8 gm/dl (3.1-4.5); CREATININE 1.64 mg/dL (0.55-1.02); POTASSIUM 4.3 mmol/L (3.5-5.1); TOTAL PROTEIN 7.4 gm/dL (6.4-8.2)
[2021-05-19] VITALS: BP 104/43
[2021-05-19 04:34] LABS: BASO % 0.1 % (0.0-1.0); HEMATOCRIT 32.4 % (37.0-47.0); LYMPH # 1.5 10*3/uL (1.3-4.4); LYMPH % 11.7 % (27.0-41.0); MEAN CELL VOLUME 97.3 fl (81.0-99.0); MEAN CORPUSCULAR HGB 30.3 pg (27.0-31.0); MEAN CORPUSCULAR HGB CONC 31.2 g/dl (33.0-37.0); MEAN PLATELET VOLUME 10.3 fl (9.6-12.3); MONO # 0.9 10*3/uL (0.1-1.0); NEUT # 10.2 10*3/uL (2.3-7.9); NEUT % 80.9 % (47.0-73.0); PLATELET COUNT AUTOMATED 212 10*3/uL (130-400); RED BLOOD COUNT 3.33 10*6/uL (4.10-5.10); RED CELL DISTRI WIDTH 13.2 % (0-14.5); WHITE BLOOD COUNT 12.6 10*3/uL (4.8-10.8)
[2021-05-19 04:57] LABS: POTASSIUM 4.3 mmol/L (3.5-5.1)
[2021-05-19 05:03] LABS: ALBUMIN 2.6 gm/dl (3.1-4.5); CREATININE 1.45 mg/dL (0.55-1.02); TOTAL PROTEIN 7.6 gm/dL (6.4-8.2)
[2021-05-19 08:00] VITALS: BP 115/59
[2021-05-19 12:00] VITALS: BP 113/58
[2021-05-19 16:00] VITALS: BP 101/53
[2021-05-19 20:00] VITALS: BP 102/50
[2021-05-20] VITALS: BP 104/56
[2021-05-20 05:51] LABS: ALBUMIN 2.3 gm/dl (3.1-4.5); CREATININE 1.32 mg/dL (0.55-1.02); POTASSIUM 4.2 mmol/L (3.5-5.1)
[2021-05-20 06:19] LABS: BASO # 0.1 10*3/uL (0.0-0.1); BASO % 0.6 % (0.0-1.0); EOS # 0.1 10*3/uL (0.0-0.4); EOS % 1.3 % (1.0-4.0); HEMATOCRIT 31.8 % (37.0-47.0); LYMPH # 3.5 10*3/uL (1.3-4.4); MEAN CELL VOLUME 99.7 fl (81.0-99.0); MEAN CORPUSCULAR HGB 30.7 pg (27.0-31.0); MEAN CORPUSCULAR HGB CONC 30.8 g/dl (33.0-37.0); MEAN PLATELET VOLUME 10.8 fl (9.6-12.3); MONO # 0.7 10*3/uL (0.1-1.0); MONO % 7.1 % (3.0-9.0); NEUT # 5.8 10*3/uL (2.3-7.9); NEUT % 56.4 % (47.0-73.0); PLATELET COUNT AUTOMATED 246 10*3/uL (130-400); RED BLOOD COUNT 3.19 10*6/uL (4.10-5.10); RED CELL DISTRI WIDTH 13.2 % (0-14.5); WHITE BLOOD COUNT 10.2 10*3/uL (4.8-10.8)
[2021-05-20 08:00] VITALS: BP 122/68
[2021-05-20 12:00] VITALS: BP 110/54
[2021-05-20 16:00] VITALS: BP 116/67
[2021-05-20 20:00] VITALS: BP 116/66
[2021-05-21] VITALS: BP 121/56
[2021-05-21 06:04] LABS: HEMATOCRIT 33.5 % (37.0-47.0); MEAN CELL VOLUME 100.9 fl (81.0-99.0); MEAN CORPUSCULAR HGB CONC 30.7 g/dl (33.0-37.0); MEAN PLATELET VOLUME 10.3 fl (9.6-12.3); PLATELET COUNT AUTOMATED 242 10*3/uL (130-400); RED BLOOD COUNT 3.32 10*6/uL (4.10-5.10); RED CELL DISTRI WIDTH 13.3 % (0-14.5); WHITE BLOOD COUNT 9.8 10*3/uL (4.8-10.8)
[2021-05-21 06:14] LABS: ALBUMIN 2.4 gm/dl (3.1-4.5); CREATININE 1.18 mg/dL (0.55-1.02); POTASSIUM 4.2 mmol/L (3.5-5.1); TOTAL PROTEIN 7.1 gm/dL (6.4-8.2)
[2021-05-21 07:54] LABS: BASOPHILS 1 % (0-1); TOTAL CELLS COUNTED 100 #CELLS
[2021-05-21 07:55] LABS: PLATELET SUFFICIENCY NORMAL (NORMAL)
[2021-05-21 08:00] VITALS: BP 121/57
[2021-05-21 16:00] VITALS: BP 110/50
[2021-05-21 20:00] VITALS: BP 112/57
[2021-05-22] VITALS: BP 114/56
[2021-05-22 08:00] VITALS: BP 131/64
[2021-05-22 11:38] LABS: CREATININE 1.19 mg/dL (0.55-1.02); POTASSIUM 3.9 mmol/L (3.5-5.1)
[2021-05-22 12:00] VITALS: BP 126/79
[2021-05-22 16:00] VITALS: BP 120/68
[2021-05-22 20:00] VITALS: BP 116/59
[2021-05-23] VITALS (10 sets, daily range): BP systolic 86–127; BP diastolic 35–64
[2021-05-23 06:06] LABS: BASO # 0.1 10*3/uL (0.0-0.1); BASO % 0.6 % (0.0-1.0); EOS # 0.8 10*3/uL (0.0-0.4); EOS % 7.3 % (1.0-4.0); HEMATOCRIT 35.9 % (37.0-47.0); LYMPH # 3.9 10*3/uL (1.3-4.4); LYMPH % 36.2 % (27.0-41.0); MEAN CORPUSCULAR HGB 30.4 pg (27.0-31.0); MEAN CORPUSCULAR HGB CONC 31.2 g/dl (33.0-37.0); MEAN PLATELET VOLUME 9.7 fl (9.6-12.3); MONO # 0.7 10*3/uL (0.1-1.0); MONO % 6.7 % (3.0-9.0); NEUT # 5.3 10*3/uL (2.3-7.9); NEUT % 48.7 % (47.0-73.0); PLATELET COUNT AUTOMATED 304 10*3/uL (130-400); RED BLOOD COUNT 3.68 10*6/uL (4.10-5.10); RED CELL DISTRI WIDTH 13.2 % (0-14.5); WHITE BLOOD COUNT 10.8 10*3/uL (4.8-10.8)
[2021-05-23 06:14] LABS: BUN 26 mg/dl (7-24); CHLORIDE 103 mmol/L (98-107); POTASSIUM 3.9 mmol/L (3.5-5.1); SODIUM 137 mmol/L (136-145)
[2021-05-23 06:45] LABS: MEAN CELL VOLUME 97.6 fl (81.0-99.0)
[2021-05-24] VITALS (7 sets, daily range): BP systolic 62–102; BP diastolic 31–54
[2021-05-24 06:08] LABS: CREATININE 1.39 mg/dL (0.55-1.02); POTASSIUM 4.3 mmol/L (3.5-5.1)
[2021-05-24 06:11] LABS: BASO % 0.1 % (0.0-1.0); HEMATOCRIT 31.5 % (37.0-47.0); LYMPH # 1.7 10*3/uL (1.3-4.4); LYMPH % 12.9 % (27.0-41.0); MEAN CELL VOLUME 99.7 fl (81.0-99.0); MEAN CORPUSCULAR HGB 30.4 pg (27.0-31.0); MEAN CORPUSCULAR HGB CONC 30.5 g/dl (33.0-37.0); MEAN PLATELET VOLUME 9.9 fl (9.6-12.3); MONO # 0.5 10*3/uL (0.1-1.0); MONO % 4.1 % (3.0-9.0); NEUT # 10.6 10*3/uL (2.3-7.9); NEUT % 82.2 % (47.0-73.0); PLATELET COUNT AUTOMATED 298 10*3/uL (130-400); RED BLOOD COUNT 3.16 10*6/uL (4.10-5.10); RED CELL DISTRI WIDTH 13.3 % (0-14.5); WHITE BLOOD COUNT 12.9 10*3/uL (4.8-10.8)
[2021-05-24] MEDS ORDERED: XARELTO10 MG PO (09:07)
[2021-05-24] MEDS ORDERED: TRAMADOL HCL50 MG PO (09:13)
[2021-05-24] MEDS ORDERED: DOXYCYCLINE HY100 M3 PO (09:13)
[2021-05-25 06:57] LABS: HEMATOCRIT 26.2 % (37.0-47.0); MEAN CELL VOLUME 99.6 fl (81.0-99.0); MEAN CORPUSCULAR HGB 30.4 pg (27.0-31.0); MEAN CORPUSCULAR HGB CONC 30.5 g/dl (33.0-37.0); MEAN PLATELET VOLUME 9.8 fl (9.6-12.3); PLATELET COUNT AUTOMATED 264 10*3/uL (130-400); RED BLOOD COUNT 2.63 10*6/uL (4.10-5.10); RED CELL DISTRI WIDTH 13.6 % (0-14.5); WHITE BLOOD COUNT 13.2 10*3/uL (4.8-10.8)
[2021-05-25 07:21] LABS: CREATININE 1.33 mg/dL (0.55-1.02)
[2021-05-25 07:39] LABS: PLATELET SUFFICIENCY NORMAL (NORMAL); POLYCHROMASIA SLIGHT; TOTAL CELLS COUNTED 100 #CELLS
[2021-05-25 08:00] VITALS: BP 111/58
[2021-05-25] MEDS ORDERED: METOPROLOL SUCC25 M2 PO (10:38)
[2021-05-25 11:08] LABS: ACID FAST SPEC PROCESSING Tissue Grinding (.)
[2021-07-07 08:08] LABS: ACID FAST CULTURE Negative (.)
== END 2021-05-25 15:31 | DRG 492 ==
LOC: ED 18:24 → EDHOLD 05-17 01:00 → 4E 05-17 01:00
PROVIDERS: Emergency Medicine; Family Medicine; Internal Medicine; Physician Assistant; Podiatrist; Registered Nurse; Student in an Organized Health Care Education/Training Program; ADMIT Internal Medicine; ATTEND Internal Medicine
PROC: 2W3RX1Z Immobilization of Left Lower Leg using Splint (ICD-10-PCS; principal; 2021-05-17)
PROC: 2W3RX1Z Immobilization of Left Lower Leg using Splint (ICD-10-PCS; 2021-05-17)
PROC: 0QSHXZZ Reposition Left Tibia, External Approach (ICD-10-PCS; 2021-05-17)
PROC: 2W3RX1Z Immobilization of Left Lower Leg using Splint (ICD-10-PCS; 2021-05-17)
PROC: 0QSH35Z Reposition Left Tibia with External Fixation Device, Percutaneous Approach (ICD-10-PCS; 2021-05-18)
PROC: 0SSGXZZ Reposition Left Ankle Joint, External Approach (ICD-10-PCS; 2021-05-18)
PROC: 3E0T3BZ Introduction of Anesthetic Agent into Peripheral Nerves and Plexi, Percutaneous Approach (ICD-10-PCS; 2021-05-18)
PROC: 3E0T33Z Introduction of Anti-inflammatory into Peripheral Nerves and Plexi, Percutaneous Approach (ICD-10-PCS; 2021-05-18)
PROC: 4A02XM4 Measurement of Cardiac Total Activity, External Approach (ICD-10-PCS; 2021-05-21)
PROC: 3E073KZ Introduction of Other Diagnostic Substance into Coronary Artery, Percutaneous Approach (ICD-10-PCS; 2021-05-21)
PROC: 0QSH04Z Reposition Left Tibia with Internal Fixation Device, Open Approach (ICD-10-PCS; 2021-05-23)
PROC: 0QSK04Z Reposition Left Fibula with Internal Fixation Device, Open Approach (ICD-10-PCS; 2021-05-23)
PROC: 0SSG04Z Reposition Left Ankle Joint with Internal Fixation Device, Open Approach (ICD-10-PCS; 2021-05-23)
PROC: 0MQR0ZZ Repair Left Ankle Bursa and Ligament, Open Approach (ICD-10-PCS; 2021-05-23)
PROC: 0SPGX5Z Removal of External Fixation Device from Left Ankle Joint, External Approach (ICD-10-PCS; 2021-05-23)
PROC: 0LST0ZZ Reposition Left Ankle Tendon, Open Approach (ICD-10-PCS; 2021-05-23)
PROC: 0QPMX5Z Removal of External Fixation Device from Left Tarsal, External Approach (ICD-10-PCS; 2021-05-23)
PROC: 0QPHX5Z Removal of External Fixation Device from Left Tibia, External Approach (ICD-10-PCS; 2021-05-23)
DX: S82.852A Displaced trimalleolar fracture of left lower leg, initial encounter for closed fracture (principal); N17.0 Acute kidney failure with tubular necrosis; J96.00 Acute respiratory failure, unspecified whether with hypoxia or hypercapnia; N39.0 Urinary tract infection, site not specified; I50.22 Chronic systolic (congestive) heart failure; I13.0 Hypertensive heart and chronic kidney disease with heart failure and stage 1 through stage 4 chronic kidney disease, or unspecified chronic kidney disease; I43 Cardiomyopathy in diseases classified elsewhere; N17.9 Acute kidney failure, unspecified; I48.20 Chronic atrial fibrillation, unspecified; S82.872A Displaced pilon fracture of left tibia, initial encounter for closed fracture; L97.521 Non-pressure chronic ulcer of other part of left foot limited to breakdown of skin; S93.05XA Dislocation of left ankle joint, initial encounter; K58.9 Irritable bowel syndrome, unspecified; M54.16 Radiculopathy, lumbar region; E11.22 Type 2 diabetes mellitus with diabetic chronic kidney disease; N18.32 Chronic kidney disease, stage 3b; D64.9 Anemia, unspecified; F41.1 Generalized anxiety disorder; E11.65 Type 2 diabetes mellitus with hyperglycemia; E11.42 Type 2 diabetes mellitus with diabetic polyneuropathy; J44.9 Chronic obstructive pulmonary disease, unspecified; E11.51 Type 2 diabetes mellitus with diabetic peripheral angiopathy without gangrene; E78.5 Hyperlipidemia, unspecified; G89.29 Other chronic pain; M54.5 Low back pain; Z20.822 Contact with and (suspected) exposure to COVID-19; B96.1 Klebsiella pneumoniae [K. pneumoniae] as the cause of diseases classified elsewhere; X58.XXXA Exposure to other specified factors, initial encounter; Z79.4 Long term (current) use of insulin; E66.9 Obesity, unspecified; W19.XXXA Unspecified fall, initial encounter; Z91.041 Radiographic dye allergy status; Z90.49 Acquired absence of other specified parts of digestive tract; Z87.39 Personal history of other diseases of the musculoskeletal system and connective tissue; Z98.891 History of uterine scar from previous surgery; Z87.891 Personal history of nicotine dependence; Z82.49 Family history of ischemic heart disease and other diseases of the circulatory system; Z79.1 Long term (current) use of non-steroidal anti-inflammatories (NSAID); Z79.51 Long term (current) use of inhaled steroids; Z79.82 Long term (current) use of aspirin; Y93.89 Activity, other specified; Y99.8 Other external cause status; Y92.098 Other place in other non-institutional residence as the place of occurrence of the external cause; Z98.51 Tubal ligation status; Z68.33 Body mass index [BMI] 33.0-33.9, adult

== ENCOUNTER 2021-07-04 02:07 | Inpatient (IN) | payer OTHER, MEDICAID ==
[~2021-07-04] VITALS: Ht 172.7 cm; Wt 97.7 kg
[~2021-07-04 02:07] MED LIST changes: +BUPRENORPHINE1 EAC2 TD; +DOXYCYCLINE HY100 M3 PO; +HYDROCODONE-AC1 EAC1 PO; +MECLIZINE HYD12.5 MG PO; +NEURONTIN800 MG PO; +SENEXON-S 50-81 EACH PO; +TRAMADOL HCL50 MG PO; +VICTOZA 3-0.6 MG/0.1 SQ; +XARELTO10 MG PO
[2021-07-04 08:30] VITALS: BP 127/60
[2021-07-04 13:42] VITALS: BP 124/56
[2021-07-04 16:00] VITALS: BP 110/49
[2021-07-04 18:14] LABS: BASO # 0.1 10*3/uL (0.0-0.1); BASO % 0.6 % (0.0-1.0); EOS # 0.4 10*3/uL (0.0-0.4); EOS % 4.1 % (1.0-4.0); HEMATOCRIT 28.1 % (37.0-47.0); LYMPH # 3.3 10*3/uL (1.3-4.4); LYMPH % 30.5 % (27.0-41.0); MEAN CELL VOLUME 96.2 fl (81.0-99.0); MEAN CORPUSCULAR HGB 28.1 pg (27.0-31.0); MEAN CORPUSCULAR HGB CONC 29.2 g/dl (33.0-37.0); MEAN PLATELET VOLUME 9.3 fl (9.6-12.3); MONO # 0.7 10*3/uL (0.1-1.0); MONO % 6.9 % (3.0-9.0); NEUT # 6.2 10*3/uL (2.3-7.9); NEUT % 57.6 % (47.0-73.0); PLATELET COUNT AUTOMATED 361 10*3/uL (130-400); RED BLOOD COUNT 2.92 10*6/uL (4.10-5.10); WHITE BLOOD COUNT 10.8 10*3/uL (4.8-10.8)
[2021-07-04 18:30] LABS: ALBUMIN 2.3 gm/dl (3.1-4.5); ALKALINE PHOSPHATASE 237 U/L (45-117); BUN 14 mg/dl (7-24); CHLORIDE 107 mmol/L (98-107); CREATININE 0.85 mg/dL (0.55-1.02); SGOT/AST 21 IU/L (3-35); SGPT/ALT 14 U/L (12-78); SODIUM 142 mmol/L (136-145); TOTAL PROTEIN 7.4 gm/dL (6.4-8.2)
[2021-07-04 20:00] VITALS: BP 124/60
[2021-07-05] VITALS: BP 131/60
[2021-07-05 07:04] LABS: BASO # 0.1 10*3/uL (0.0-0.1); BASO % 0.7 % (0.0-1.0); EOS # 0.5 10*3/uL (0.0-0.4); EOS % 5.8 % (1.0-4.0); HEMATOCRIT 28.7 % (37.0-47.0); LYMPH # 2.9 10*3/uL (1.3-4.4); LYMPH % 34.5 % (27.0-41.0); MEAN CELL VOLUME 97.6 fl (81.0-99.0); MEAN CORPUSCULAR HGB 27.9 pg (27.0-31.0); MEAN CORPUSCULAR HGB CONC 28.6 g/dl (33.0-37.0); MEAN PLATELET VOLUME 9.6 fl (9.6-12.3); MONO # 0.8 10*3/uL (0.1-1.0); MONO % 9.7 % (3.0-9.0); NEUT % 48.9 % (47.0-73.0); PLATELET COUNT AUTOMATED 389 10*3/uL (130-400); RED BLOOD COUNT 2.94 10*6/uL (4.10-5.10); RED CELL DISTRI WIDTH 15.1 % (0-14.5); WHITE BLOOD COUNT 8.3 10*3/uL (4.8-10.8)
[2021-07-05 07:17] LABS: ACT PARTIAL THROMBO TIME 25.9 SECONDS (20.0-32.1); INTERNATIONAL NORM RATIO 1.1 (2.0-3.5)
[2021-07-05 07:18] LABS: ALBUMIN 2.1 gm/dl (3.1-4.5); ALKALINE PHOSPHATASE 230 U/L (45-117); BUN 13 mg/dl (7-24); CHLORIDE 107 mmol/L (98-107); POTASSIUM 3.6 mmol/L (3.5-5.1); SGOT/AST 16 IU/L (3-35); SGPT/ALT 11 U/L (12-78); SODIUM 142 mmol/L (136-145); TOTAL PROTEIN 7.1 gm/dL (6.4-8.2)
[2021-07-05 08:00] VITALS: BP 128/56
[2021-07-05 12:00] VITALS: BP 126/55
[2021-07-05 16:00] VITALS: BP 108/50
[2021-07-05 20:00] VITALS: BP 109/45
[2021-07-06] VITALS (8 sets, daily range): BP systolic 89–150; BP diastolic 32–72
[2021-07-06 06:05] LABS: BASO # 0.1 10*3/uL (0.0-0.1); BASO % 0.5 % (0.0-1.0); EOS # 0.7 10*3/uL (0.0-0.4); EOS % 7.2 % (1.0-4.0); LYMPH # 3.9 10*3/uL (1.3-4.4); LYMPH % 41.3 % (27.0-41.0); MEAN CELL VOLUME 96.8 fl (81.0-99.0); MEAN CORPUSCULAR HGB CONC 28.9 g/dl (33.0-37.0); MEAN PLATELET VOLUME 9.7 fl (9.6-12.3); MONO # 0.7 10*3/uL (0.1-1.0); MONO % 7.5 % (3.0-9.0); NEUT % 43.2 % (47.0-73.0); PLATELET COUNT AUTOMATED 383 10*3/uL (130-400); RED BLOOD COUNT 2.79 10*6/uL (4.10-5.10); RED CELL DISTRI WIDTH 15.2 % (0-14.5); WHITE BLOOD COUNT 9.3 10*3/uL (4.8-10.8)
[2021-07-06 06:26] LABS: BUN 10 mg/dl (7-24); CHLORIDE 106 mmol/L (98-107); CREATININE 1.02 mg/dL (0.55-1.02); POTASSIUM 3.7 mmol/L (3.5-5.1); SODIUM 142 mmol/L (136-145)
[2021-07-07] VITALS: BP 118/65
[2021-07-07 06:16] LABS: BASO % 0.4 % (0.0-1.0); EOS # 0.7 10*3/uL (0.0-0.4); HEMATOCRIT 29.3 % (37.0-47.0); MEAN CELL VOLUME 96.4 fl (81.0-99.0); MEAN PLATELET VOLUME 9.6 fl (9.6-12.3); MONO # 0.9 10*3/uL (0.1-1.0); MONO % 9.4 % (3.0-9.0); NEUT # 4.3 10*3/uL (2.3-7.9); PLATELET COUNT AUTOMATED 409 10*3/uL (130-400); RED BLOOD COUNT 3.04 10*6/uL (4.10-5.10); RED CELL DISTRI WIDTH 15.1 % (0-14.5); WHITE BLOOD COUNT 9.9 10*3/uL (4.8-10.8)
[2021-07-07 06:27] LABS: ALBUMIN 2.3 gm/dl (3.1-4.5); ALKALINE PHOSPHATASE 228 U/L (45-117); BUN 7 mg/dl (7-24); CHLORIDE 107 mmol/L (98-107); CREATININE 0.96 mg/dL (0.55-1.02); POTASSIUM 3.4 mmol/L (3.5-5.1); SGOT/AST 22 IU/L (3-35); SGPT/ALT 18 U/L (12-78); SODIUM 142 mmol/L (136-145); TOTAL PROTEIN 7.5 gm/dL (6.4-8.2)
[2021-07-07 08:00] VITALS: BP 126/52
[2021-07-07 12:00] VITALS: BP 122/55
[2021-07-07 16:00] VITALS: BP 115/60
[2021-07-07 20:00] VITALS: BP 113/57
[2021-07-08] VITALS: BP 111/56
[2021-07-08 06:26] LABS: HEMATOCRIT 28.2 % (37.0-47.0); MEAN CELL VOLUME 95.9 fl (81.0-99.0); MEAN CORPUSCULAR HGB 27.6 pg (27.0-31.0); MEAN CORPUSCULAR HGB CONC 28.7 g/dl (33.0-37.0); MEAN PLATELET VOLUME 9.8 fl (9.6-12.3); PLATELET COUNT AUTOMATED 363 10*3/uL (130-400); RED BLOOD COUNT 2.94 10*6/uL (4.10-5.10); RED CELL DISTRI WIDTH 15.2 % (0-14.5); WHITE BLOOD COUNT 9.7 10*3/uL (4.8-10.8)
[2021-07-08 06:52] LABS: BUN 7 mg/dl (7-24); CHLORIDE 104 mmol/L (98-107); CREATININE 1.07 mg/dL (0.55-1.02); POTASSIUM 3.7 mmol/L (3.5-5.1); SODIUM 140 mmol/L (136-145)
[2021-07-08 08:00] VITALS: BP 111/55
[2021-07-08 09:02] LABS: PLATELET SUFFICIENCY NORMAL (NORMAL); POLYCHROMASIA SLIGHT; TOTAL CELLS COUNTED 100 #CELLS
[2021-07-08 12:00] VITALS: BP 119/61
[2021-07-08 16:00] VITALS: BP 96/52
[2021-07-08 20:00] VITALS: BP 96/51
[2021-07-09] VITALS: BP 114/56
[2021-07-09 06:29] LABS: HEMATOCRIT 26.4 % (37.0-47.0); MEAN CORPUSCULAR HGB CONC 29.2 g/dl (33.0-37.0); MEAN PLATELET VOLUME 9.9 fl (9.6-12.3); PLATELET COUNT AUTOMATED 352 10*3/uL (130-400); RED BLOOD COUNT 2.75 10*6/uL (4.10-5.10); RED CELL DISTRI WIDTH 15.3 % (0-14.5); WHITE BLOOD COUNT 10.4 10*3/uL (4.8-10.8)
[2021-07-09 06:31] LABS: BUN 9 mg/dl (7-24); CHLORIDE 104 mmol/L (98-107); CREATININE 1.03 mg/dL (0.55-1.02); POTASSIUM 3.8 mmol/L (3.5-5.1); SODIUM 139 mmol/L (136-145)
[2021-07-09 07:36] LABS: BASOPHILS 1 % (0-1); TOTAL CELLS COUNTED 100 #CELLS
[2021-07-09 07:37] LABS: PLATELET SUFFICIENCY NORMAL (NORMAL); POLYCHROMASIA SLIGHT
[2021-07-09 08:00] VITALS: BP 122/52
[2021-07-09 12:00] VITALS: BP 120/68
[2021-07-09 16:00] VITALS: BP 130/64
[2021-07-09 20:00] VITALS: BP 112/50
[2021-07-10] VITALS: BP 114/46
[2021-07-10 07:26] LABS: BASO # 0.1 10*3/uL (0.0-0.1); BASO % 0.7 % (0.0-1.0); EOS # 0.5 10*3/uL (0.0-0.4); EOS % 5.2 % (1.0-4.0); HEMATOCRIT 30.7 % (37.0-47.0); LYMPH # 3.2 10*3/uL (1.3-4.4); LYMPH % 34.4 % (27.0-41.0); MEAN CELL VOLUME 95.9 fl (81.0-99.0); MEAN CORPUSCULAR HGB 27.8 pg (27.0-31.0); MONO # 0.6 10*3/uL (0.1-1.0); MONO % 6.8 % (3.0-9.0); NEUT # 4.8 10*3/uL (2.3-7.9); NEUT % 52.7 % (47.0-73.0); PLATELET COUNT AUTOMATED 389 10*3/uL (130-400); RED CELL DISTRI WIDTH 15.4 % (0-14.5); WHITE BLOOD COUNT 9.2 10*3/uL (4.8-10.8)
[2021-07-10 07:45] LABS: BUN 9 mg/dl (7-24); CHLORIDE 103 mmol/L (98-107); POTASSIUM 3.7 mmol/L (3.5-5.1); SODIUM 140 mmol/L (136-145)
[2021-07-10 08:00] VITALS: BP 146/76
[2021-07-18] MEDS ORDERED: VIBRAMYCIN HYC100 MG PO (09:42)
[2021-07-18] MEDS ORDERED: CIPRO500 MG PO (09:42)
== END 2021-07-10 14:15 | DRG 377 ==
LOC: SDC 02:07 → 5E 13:30
PROVIDERS: Family Medicine; Internal Medicine; ADMIT Internal Medicine; ATTEND Internal Medicine
PROC: 0SSGXZZ Reposition Left Ankle Joint, External Approach (ICD-10-PCS; principal; 2021-07-04)
PROC: 2W3RX2Z Immobilization of Left Lower Leg using Cast (ICD-10-PCS; 2021-07-04)
PROC: 0DB68ZX Excision of Stomach, Via Natural or Artificial Opening Endoscopic, Diagnostic (ICD-10-PCS; 2021-07-06)
PROC: 0DBN8ZX Excision of Sigmoid Colon, Via Natural or Artificial Opening Endoscopic, Diagnostic (ICD-10-PCS; 2021-07-06)
PROC: 0DBL8ZX Excision of Transverse Colon, Via Natural or Artificial Opening Endoscopic, Diagnostic (ICD-10-PCS; 2021-07-06)
PROC: 0DBN8ZZ Excision of Sigmoid Colon, Via Natural or Artificial Opening Endoscopic (ICD-10-PCS; 2021-07-06)
PROC: 0DBL8ZZ Excision of Transverse Colon, Via Natural or Artificial Opening Endoscopic (ICD-10-PCS; 2021-07-06)
DX: K29.01 Acute gastritis with bleeding (principal); E43 Unspecified severe protein-calorie malnutrition; I13.0 Hypertensive heart and chronic kidney disease with heart failure and stage 1 through stage 4 chronic kidney disease, or unspecified chronic kidney disease; I50.22 Chronic systolic (congestive) heart failure; K57.31 Diverticulosis of large intestine without perforation or abscess with bleeding; S93.05XA Dislocation of left ankle joint, initial encounter; G62.9 Polyneuropathy, unspecified; E11.22 Type 2 diabetes mellitus with diabetic chronic kidney disease; Z20.822 Contact with and (suspected) exposure to COVID-19; E11.65 Type 2 diabetes mellitus with hyperglycemia; N18.30 Chronic kidney disease, stage 3 unspecified; E11.42 Type 2 diabetes mellitus with diabetic polyneuropathy; K58.9 Irritable bowel syndrome, unspecified; F41.1 Generalized anxiety disorder; J44.9 Chronic obstructive pulmonary disease, unspecified; I48.91 Unspecified atrial fibrillation; L97.521 Non-pressure chronic ulcer of other part of left foot limited to breakdown of skin; E11.621 Type 2 diabetes mellitus with foot ulcer; D63.8 Anemia in other chronic diseases classified elsewhere; K63.5 Polyp of colon; Z79.4 Long term (current) use of insulin; X58.XXXA Exposure to other specified factors, initial encounter; Z87.39 Personal history of other diseases of the musculoskeletal system and connective tissue; Z68.32 Body mass index [BMI] 32.0-32.9, adult; Z91.041 Radiographic dye allergy status; Z90.49 Acquired absence of other specified parts of digestive tract; Z98.891 History of uterine scar from previous surgery; Z87.891 Personal history of nicotine dependence; Z82.49 Family history of ischemic heart disease and other diseases of the circulatory system; Z79.899 Other long term (current) drug therapy; Y93.89 Activity, other specified; Y92.89 Other specified places as the place of occurrence of the external cause; Y99.8 Other external cause status; Z79.51 Long term (current) use of inhaled steroids; Z79.1 Long term (current) use of non-steroidal anti-inflammatories (NSAID)

== ENCOUNTER → 2021-07-18 | Day surgery (SDC) | payer OTHER, MEDICAID ==
[~2021-07-18] VITALS: Ht 172.7 cm; Wt 98.4 kg
[~2021-07-18] MED LIST changes: +VIBRAMYCIN HYC100 MG PO
[2021-07-18 08:13] VITALS: BP 130/52
[2021-07-18 10:03] LABS: BASO # 0.1 10*3/uL (0.0-0.1); BASO % 0.9 % (0.0-1.0); EOS # 0.6 10*3/uL (0.0-0.4); EOS % 5.5 % (1.0-4.0); HEMATOCRIT 28.9 % (37.0-47.0); LYMPH # 2.6 10*3/uL (1.3-4.4); LYMPH % 25.6 % (27.0-41.0); MEAN CELL VOLUME 95.1 fl (81.0-99.0); MEAN CORPUSCULAR HGB CONC 29.4 g/dl (33.0-37.0); MEAN PLATELET VOLUME 9.6 fl (9.6-12.3); MONO # 0.8 10*3/uL (0.1-1.0); MONO % 8.1 % (3.0-9.0); NEUT % 59.7 % (47.0-73.0); PLATELET COUNT AUTOMATED 399 10*3/uL (130-400); RED BLOOD COUNT 3.04 10*6/uL (4.10-5.10); RED CELL DISTRI WIDTH 15.6 % (0-14.5); WHITE BLOOD COUNT 10.1 10*3/uL (4.8-10.8)
== END ==
LOC: SDC 07-02 08:45
PROVIDERS: Podiatrist Foot & Ankle Surgery; ATTEND Podiatrist
DX: E11.622 Type 2 diabetes mellitus with other skin ulcer (principal); L97.329 Non-pressure chronic ulcer of left ankle with unspecified severity; I11.0 Hypertensive heart disease with heart failure; I50.9 Heart failure, unspecified; J44.9 Chronic obstructive pulmonary disease, unspecified; E11.40 Type 2 diabetes mellitus with diabetic neuropathy, unspecified; F41.9 Anxiety disorder, unspecified; I48.91 Unspecified atrial fibrillation; Z87.891 Personal history of nicotine dependence; Z79.899 Other long term (current) drug therapy